=== PATIENT | female | born 1955 | race Caucasian/White ===

== ENCOUNTER 2020-06-15 09:51 | Outpatient (REF) | payer OTHER, SELFPAY ==
--- NOTE | 2020-06-15 | US_ITS ---
EXAMINATION: US THYROID CLINICAL INFORMATION: Thyroid nodule. COMPARISON: Ultrasound soft tissue head/neck thyroid dated 08/11/2019 and 08/30/2018. TECHNIQUE: Linear transducer osuna-scale and color Doppler examination with attention to the region of the thyroid. FINDINGS: SIZE: Measurements of the thyroid lobes and nodules are given in sagittal, anteroposterior and transverse dimensions respectively. Right Thyroid Lobe: 5.9 x 2.6 x 2.3 cm, volume 18.5 mL. Previously 5.7 x 2.6 x 2.3 cm, volume 17.8 mL. Parenchyma: The gland echotexture is heterogeneous. Thyroid vascularity is normal. Left Thyroid Lobe: 5.0 x 1.8 x 1.9 cm, volume 8.9 mL. Previously 5.0 x 2.3 x 1.7 cm, volume 10.2 mL. Parenchyma: The gland echotexture is heterogeneous. Thyroid vascularity is normal. Isthmus: 0.4 cm in maximum AP dimension. Previously 0.4 cm. RIGHT THYROID LOBE: There are 4 nodules seen. 1. Location: Superior. Size: 0.4 x 0.3 x 0.4 cm. Previous: 0.4 x 0.3 x 0.4 cm. Nodule characteristics: Colloid cyst. Hypoechoic with smooth margins. Microcalcification present with no intranodular flow.. 2. Location: Middle/lateral. Size: 0.4 x 0.4 x 0.4 cm. This nodule is not previously seen. Nodule characteristics: Heterogeneously hypoechoic with smooth margins. No internal calcification or intranodular flow.. 3. Location: Inferior/posterior. Size: 0.6 x 0.5 x 0.6 cm. Previous: 0.8 x 0.5 x 0.7 cm. Nodule characteristics: Heterogeneously hypoechoic with smooth margins. No internal calcification or intranodular flow.. 4. Location: Inferior. Size: 3.1 x 2.0 x 2.6 cm. Previous: 3.3 x 2.3 x 2.3 cm. Nodule characteristics: Heterogeneously isoechoic with smooth margins. No internal calcification. Intranodular flow is present. ISTHMUS: There is 1 nodule seen. 1. Location: Right middle. Size: 2.1 x 1.3 x 2.0 cm. Previous: 2.3 x 1.3 x 1.9 cm. Nodule characteristics: Complex cystic. Hypoechoic with smooth margins. Microcalcifications present. Increased flow peripherally.. LEFT THYROID LOBE: There are 4 nodules seen. 1. Location: Superior. Size: 0.5 x 0.4 x 0.5 cm. Previous: 0.6 x 0.4 x 0.5 cm. Nodule characteristics: Heterogeneously hypoechoic with smooth margins. No internal calcification. Mild intranodular flow.. 2. Location: Superior. Size: 0.5 x 0.4 x 0.5 cm. Previous: 0.5 x 0.3 x 0.6 cm. Nodule characteristics: Heterogeneously hypoechoic with smooth margins. No internal calcification. Intranodular flow noted.. 3. Location: Middle. Size: 0.3 x 0.2 x 0.3 cm. Previous: 0.4 x 0.3 x 0.3 cm. Nodule characteristics: Colloid cyst. Hypoechoic with smooth margins. Microcalcification present with no intranodular flow.. 4. Location: Inferior. Size: 0.6 x 0.3 x 0.3 cm. Previous: 0.5 x 0.3 x 0.3 cm. Nodule characteristics: Complex cystic. Hypoechoic with irregular margins. Microcalcification present with intranodular flow noted.. NODES: No lymphadenopathy is seen in the tissue surrounding the thyroid gland. US/US thyroid IMPRESSION: Enlarged thyroid gland with multiple nodules noted. When compared to the previous study, this has a similar appearance..
== END 2020-06-15 09:52 | disposition home or self-care (01) ==
LOC: HO.HMGCX 09:51
PROVIDERS: PCP Internal Medicine; Visit Provider Internal Medicine
DX: E04.1 Nontoxic single thyroid nodule (principal)
CPT/HCPCS: 76536

== ENCOUNTER 2021-05-31 10:26 | Outpatient (REF) | payer OTHER, SELFPAY ==
--- NOTE | ~2021-05-31 | US_ITS ---
EXAMINATION: US THYROID CLINICAL INFORMATION: Thyroid nodules. COMPARISON: Ultrasound thyroid 06/15/2020. TECHNIQUE: Linear transducer osuna-scale and color Doppler examination with attention to the region of the thyroid. FINDINGS: SIZE: Measurements of the thyroid lobes and nodules are given in sagittal, anteroposterior and transverse dimensions respectively. Right Thyroid Lobe: 6.5 x 2.7 x 2.2 cm, volume 19.6 mL. Previously 5.9 x 2.6 x 2.3 cm, volume 18.5 mL. Parenchyma: The gland echotexture is homogeneous. Thyroid vascularity is normal. Left Thyroid Lobe: 4.4 x 1.9 x 1.2 cm, volume 5.3 mL. Previously 5.0 x 1.8 x 1.9 cm, volume 8.9 mL. Parenchyma: The gland echotexture is homogeneous. Thyroid vascularity is normal. Isthmus: 0.38 cm in maximum AP dimension. Previously 0.40 cm. Estimated total number of nodules greater than or equal to 1 cm: 1. Technical Rep nodules are described as follows: 1. Location: Right isthmus. Size: 0.85 x 0.60 x 0.60 cm, volume 0.16 mL. Previously: 2.1 x 1.3 x 2.0 cm, volume 2.9 mL. Nodule characteristics: Composition: Mixed cystic and solid (1). Echogenicity: Hypoechoic (2). Shape: Not taller than wide (0). Margins: Smooth (0). Echogenic Foci: Punctate echogenic foci (3). ACR TI-RADS total points: 6 Previous: Not applicable. ACR TI-RADS category: 4 Previous: Not applicable. Significant change in size (>/= 20% in 2 dimensions and minimal increase of 2 mm or 50% or greater increase in volume): No, decreased Change in features: No Change in ACR TI-RADS risk category: No 2. Location: Right mid. Size: 0.35 x 0.45 x 0.60 cm, volume 0.05 mL. Previously: 0.42 x 0.40 x 0.44 cm, volume 0.04 mL. Nodule characteristics: Composition: Mixed cystic and solid (1). Echogenicity: Hypoechoic (2). Shape: Not taller than wide (0). Margins: Smooth (0). Echogenic Foci: Punctate echogenic foci (3). ACR TI-RADS total points: 6 Previous: Not applicable. ACR TI-RADS category: 4 Previous: Not applicable. Significant change in size (>/= 20% in 2 dimensions and minimal increase of 2 mm or 50% or greater increase in volume): No Change in features: No Change in ACR TI-RADS risk category: No 3. Location: Right mid/lower. Size: 3.2 x 2.2 x 2.2 cm, volume 8.3 mL. Previously: 3.1 x 2.0 x 2.5 cm, volume 8.1 mL. Nodule characteristics: Composition: Solid/almost completely solid (2). Echogenicity: Cannot be determined (1). Shape: Not taller than wide (0). Margins: Smooth (0). Echogenic Foci: Punctate echogenic foci (3). ACR TI-RADS total points: 6 Previous: Not applicable. ACR TI-RADS category: 4 Previous: Not applicable. Significant change in size (>/= 20% in 2 dimensions and minimal increase of 2 mm or 50% or greater increase in volume): No Change in features: No Change in ACR TI-RADS risk category: No 4. Location: Right lower. Size: 0.82 x 0.50 x 0.81 cm, volume 0.17 mL. Previously: Not seen previously. Nodule characteristics: Composition: Mixed cystic and solid (1). Echogenicity: Very hypoechoic (3). Shape: Not taller than wide (0). Margins: Smooth (0). Echogenic Foci: None (0). ACR TI-RADS total points: 4 Previous: Not applicable. ACR TI-RADS category: 4 Previous: Not applicable. 5. Location: Left mid. Size: 0.60 x 0.40 x 0.50 cm, volume 0.06 mL. Previously: 0.54 x 0.37 x 0.46 cm, volume 0.05 mL. Nodule characteristics: Composition: Mixed cystic and solid (1). Echogenicity: Hypoechoic (2). Shape: Not taller than wide (0). Margins: Smooth (0). Echogenic Foci: Punctate echogenic foci (3). ACR TI-RADS total points: 6 Previous: Not applicable. ACR TI-RADS category: 4 Previous: Not applicable. Significant change in size (>/= 20% in 2 dimensions and minimal increase of 2 mm or 50% or greater increase in volume): No Change in features: No Change in ACR TI-RADS risk category: No NODES: No lymphadenopathy is seen in the tissue surrounding the thyroid gland. US/US thyroid IMPRESSION: Multinodular thyroid gland, with most nodules not significantly changed from prior. Nodule at the isthmus appears decreased in prominence from prior. Other than nodule #3, these nodules do not require follow-up. The largest nodule would be appropriate for fine-needle aspiration, though this may have been remotely biopsied. No significant change from prior imaging. ACR TI-RADS RECOMMENDATION REFERENCE: Ultrasound-guided fine-needle aspiration, followup ultrasound, no further follow up. * TR1 (0 point) and TR 2 (2 points): No FNA or follow up * TR3 (3 points): FNA if more than or equal to 2.5 cm in maximum dimension, followup ultrasound in 1, 3 and 5 years if 1.5 to 2.4 cm in maximum dimension. * TR4 (4-6 points): FNA if more than or equal to 1.5 cm in maximum dimension, followup ultrasound in 1, 2, 3 and 5 years if 1 to 1.4 cm in maximum dimension. * TR5 (more than or equal to 7 points): FNA if more than or equal to 1 cm in maximum dimension, followup ultrasound every year for 5 years if 0.5 to 0.9 cm in maximum dimension. * TR3, TR4 or TR5 nodules that are below the size threshold for follow up receive no follow up.
== END 2021-05-31 10:27 | disposition home or self-care (01) ==
LOC: HO.HMGCX 10:26
PROVIDERS: PCP Internal Medicine; Visit Provider Internal Medicine
DX: E04.1 Nontoxic single thyroid nodule (principal)
CPT/HCPCS: 76536

== ENCOUNTER 2021-06-04 10:23 | Outpatient (REF) | payer OTHER, SELFPAY ==
[2021-06-04 10:27] LABS: MANUAL DIFF FLAG NO
[2021-06-04 11:00] LABS: Basophils Percent Auto 0.8 % (0-2); Eosinophils Absolute Auto 0.1 X10*3/uL (0.0-0.4); Eosinophils Percent Auto 1.7 % (0-4); Hematocrit 44.1 % (37.0-47.0); Hemoglobin 14.4 g/dl (12.0-16.0); Imm Gran Abs Auto 0.01 X10*3/uL (0.00-0.03); Imm Gran Pct Auto 0.2 % (0.0-0.4); Lymphocytes Absolute Auto 1.6 X10*3/uL (1.2-4.9); Lymphocytes Percent Auto 30.7 % (20-40); Mean Corpuscular HGB Conc 32.7 g/dl (31.0-35.0); Mean Corpuscular Hemoglobin 29.9 pg (27.0-33.0); Mean Corpuscular Volume 91.7 fL (80.0-98.0); Mean Platelet Volume 9.6 fL (9.4-12.3); Monocytes Absolute Auto 0.5 X10*3/uL (0.1-1.2); Monocytes Percent Auto 9.7 % (2-11); Neutrophils Absolute Auto 2.99 x10*3/uL (2.0-8.3); Neutrophils Percent Auto 56.9 % (45-73); Platelet Count 258 X10*3/uL (160-400); Red Blood Count 4.81 X10*6/uL (4.20-5.50); Red Cell Distribution Width 11.9 % (11.0-16.0); White Blood Count 5.3 X10*3/uL (4.8-10.8)
[2021-06-04 11:23] LABS: Appearance Urine CLOUDY; Color Urine YELLOW; Glucose Urine UA NEG (NEG); Leukocyte Esterase Urine 3+ (NEG); Nitrite Urine NEG (NEG); Urine Blood 1+ (NEG); Urine Ketones NEG (NEG); Urine Protein NEG (NEG-TRACE)
[2021-06-04 11:45] LABS: Alanine Aminotransferase 25 U/L (0-31); Alkaline Phosphatase 96 U/L (39-117); Anion Gap 10 (12-20); Aspartate Amino Transferase 31 U/L (5-31); Bilirubin Total 0.4 mg/dL (0.0-1.0); Blood Urea Nitrogen 16 mg/dL (9-16); Calcium 9.2 mg/dL (8.4-10.2); Carbon Dioxide 29 mmol/L (22-29); Chloride 107 mmol/L (96-108); Cholesterol 182 mg/dL; Estimated Glomerular Filt Rate > 60; Glucose Fasting 107 mg/dL (60-99); HDL Cholesterol 55 mg/dL; LDL Cholesterol Calculated 116 mg/dl; Sodium 142 mmol/L (135-145); Total Protein 6.3 g/dL (6.5-8.0); Triglycerides 55 mg/dL
[2021-06-04 11:54] LABS: Bacteria Urine 2+ /LPF; Squamous Epithelial Cell Urine 2+ /LPF
[2021-06-04 11:55] LABS: Mucus Urine 2+ /LPF
[2021-06-04 12:06] LABS: TSH reflex Free T4 1.13 uIU/mL (0.32-4.0); Vitamin D 25-OH Total 41.8 ng/mL (>30)
[2021-06-04 12:17] LABS: Vitamin B12 392 pg/mL (200-900)
== END 2021-06-04 10:24 | disposition home or self-care (01) ==
LOC: HO.LNP 10:23
PROVIDERS: Visit Provider Internal Medicine
DX: Z00.00 Encounter for general adult medical examination without abnormal findings (principal); E55.9 Vitamin D deficiency, unspecified; R81 Glycosuria; I10 Essential (primary) hypertension; E04.1 Nontoxic single thyroid nodule
CPT/HCPCS: 80053; 80061; 81001; 81003; 82306; 82607; 84443; 85025

== ENCOUNTER 2021-06-10 12:26 | Outpatient (REF) | payer OTHER, SELFPAY | END 2021-06-10 12:27 | disposition home or self-care (01) | LOC: HO.LNP 12:26 | PROVIDERS: Visit Provider Internal Medicine | DX: R30.0 Dysuria (principal) | CPT/HCPCS: 87086 ==

== ENCOUNTER 2022-06-10 11:01 | Outpatient (REF) | payer OTHER, SELFPAY ==
[2022-06-10 11:04] LABS: MANUAL DIFF FLAG NO
[2022-06-10 12:03] LABS: Basophils Percent Auto 0.7 % (0-2); Eosinophils Absolute Auto 0.1 X10*3/uL (0.0-0.4); Eosinophils Percent Auto 1.1 % (0-4); Hematocrit 45.6 % (37.0-47.0); Hemoglobin 14.8 g/dl (12.0-16.0); Imm Gran Abs Auto 0.01 X10*3/uL (0.00-0.03); Imm Gran Pct Auto 0.2 % (0.0-0.4); Lymphocytes Absolute Auto 1.6 X10*3/uL (1.2-4.9); Lymphocytes Percent Auto 28.4 % (20-40); Mean Corpuscular HGB Conc 32.5 g/dl (31.0-35.0); Mean Corpuscular Hemoglobin 30.4 pg (27.0-33.0); Mean Corpuscular Volume 93.6 fL (80.0-98.0); Mean Platelet Volume 9.6 fL (9.4-12.3); Monocytes Absolute Auto 0.5 X10*3/uL (0.1-1.2); Monocytes Percent Auto 7.9 % (2-11); Neutrophils Absolute Auto 3.5 x10*3/uL (2.0-8.3); Neutrophils Percent Auto 61.7 % (45-73); Platelet Count 263 X10*3/uL (160-400); Red Blood Count 4.87 X10*6/uL (4.20-5.50); White Blood Count 5.7 X10*3/uL (4.8-10.8)
[2022-06-10 12:12] LABS: Appearance Urine Clear; Color Urine Yellow; Glucose Urine UA Negative (Negative); Leukocyte Esterase Urine Trace (Negative); Nitrite Urine Negative (Negative); UMIC TRIGGER UA YES; Urine Blood Negative (Negative); Urine Ketones Negative (Negative); Urine Protein Negative (Neg-Trace)
[2022-06-10 12:22] LABS: Bacteria Urine None Seen (None Seen); Hyaline Casts Urine 0-2 /LPF (0-2); RBC Urine 0-2 /HPF (0-2); Squamous Epithelial Cell Urine 0-2 /HPF (0-2); WBC Urine 0-5 /HPF (0-5)
[2022-06-10 12:35] LABS: TSH reflex Free T4 0.72 uIU/mL (0.32-4.0)
[2022-06-10 12:49] LABS: Alanine Aminotransferase 22 U/L (0-31); Albumin Level 4.3 g/dL (3.5-5.0); Alkaline Phosphatase 93 U/L (39-117); Anion Gap 14 (12-20); Aspartate Amino Transferase 28 U/L (5-31); Bilirubin Total 0.7 mg/dL (0.0-1.0); Blood Urea Nitrogen 21 mg/dL (9-16); Calcium 9.6 mg/dL (8.4-10.2); Carbon Dioxide 25 mmol/L (22-29); Chloride 109 mmol/L (96-108); Cholesterol 194 mg/dL; Estimated Glomerular Filt Rate > 60; Glucose Fasting 109 mg/dL (60-99); HDL Cholesterol 55 mg/dL; LDL Cholesterol Calculated 127 mg/dl; Potassium 4.1 mmol/L (3.3-5.1); Sodium 144 mmol/L (135-145); Total Protein 6.7 g/dL (6.5-8.0); Triglycerides 63 mg/dL
== END 2022-06-10 11:02 | disposition home or self-care (01) ==
LOC: HO.LNP 11:01
PROVIDERS: Visit Provider Internal Medicine
DX: Z00.00 Encounter for general adult medical examination without abnormal findings (principal); E55.9 Vitamin D deficiency, unspecified; E04.1 Nontoxic single thyroid nodule; I10 Essential (primary) hypertension
CPT/HCPCS: 80053; 80061; 81001; 82306; 84443; 85025

== ENCOUNTER 2022-06-11 13:52 | Outpatient (REF) | payer OTHER, SELFPAY ==
--- NOTE | ~2022-06-11 | US_ITS ---
EXAMINATION: US THYROID CLINICAL INFORMATION: Multinodular goiter. COMPARISON: Ultrasound thyroid 05/31/2021 and 06/15/2020. TECHNIQUE: Linear transducer grayscale and color Doppler examination with attention to the region of the thyroid. FINDINGS: SIZE: Measurements of the thyroid lobes and nodules are given in sagittal, anteroposterior and transverse dimensions respectively. Right Thyroid Lobe: 6.6 x 2.3 x 2.3 cm, volume 18.4 mL. Previously 6.5 x 2.7 x 2.2 cm, volume 19.6 mL. Parenchyma: The gland echotexture is heterogeneous. Thyroid vascularity is increased. Left Thyroid Lobe: 4.9 x 1.9 x 1.4 cm, volume 6.8 mL. Previously 4.4 x 1.9 x 1.2 cm, volume 5.3 mL. Parenchyma: The gland echotexture is heterogeneous. Thyroid vascularity is increased. Isthmus: 0.75 cm in maximum AP dimension. Previously 0.38 cm. Estimated total number of nodules greater than or equal to 1 cm: 1. Orthotic/Prosthetic Practitioner nodules are described as follows: 1. Location: Right mid. Size: 0.40 x 0.40 x 0.40 cm, volume 0.03 mL. Previously: 0.30 x 0.40 x 0.60 cm, volume 0.05 mL. Nodule characteristics: Composition: Spongiform (0). Echogenicity: Anechoic (0). Shape: Not taller than wide (0). Margins: Smooth (0). Echogenic Foci: None (0). ACR TI-RADS total points: 0. Previous: 6. ACR TI-RADS category: 1. Previous: 4. Significant change in size (>/= 20% in 2 dimensions and minimal increase of 2 mm or 50% or greater increase in volume): None. Change in features: None. Change in ACR TI-RADS risk category: Not applicable. 2. Location: Right mid/inferior. Size: 3.3 x 2.4 x 2.5 cm, volume 10.0 mL. Previously: 3.2 x 2.2 x 2.2 cm, volume 8.3 mL. Nodule characteristics: Composition: Solid/almost completely solid (2). Echogenicity: Cannot be determined (1). Shape: Not taller than wide (0). Margins: Smooth (0). Echogenic Foci: Punctate echogenic foci (3). ACR TI-RADS total points: 6. Previous: 6. ACR TI-RADS category: 4. Previous: 4. Significant change in size (>/= 20% in 2 dimensions and minimal increase of 2 mm or 50% or greater increase in volume): None. Change in features: None. Change in ACR TI-RADS risk category: No change. 3. Location: Right inferior. Size: 0.90 x 0.53 x 0.74 cm, volume 0.18 mL. Previously: 0.82 x 0.50 x 0.81 cm, volume 0.17 mL. Nodule characteristics: Composition: Spongiform (0). Echogenicity: Anechoic (0). Shape: Not taller than wide (0). Margins: Smooth (0). Echogenic Foci: None (0). ACR TI-RADS total points: 0. Previous: 4. ACR TI-RADS category: 1. Previous: 4. Significant change in size (>/= 20% in 2 dimensions and minimal increase of 2 mm or 50% or greater increase in volume): None. Change in features: None. Change in ACR TI-RADS risk category: Significantly improved. 4. Location: Left superior. Size: 0.70 x 0.50 x 0.60 cm, volume 0.11 mL. Previously: 0.60 x 0.40 x 0.50 cm, volume 0.06 mL. Nodule characteristics: Composition: Spongiform (0). Echogenicity: Anechoic (0). Shape: Not taller than wide (0). Margins: Smooth (0). Echogenic Foci: None (0). ACR TI-RADS total points: 0. Previous: 6. ACR TI-RADS category: 1. Previous: 4. Significant change in size (>/= 20% in 2 dimensions and minimal increase of 2 mm or 50% or greater increase in volume): None. Change in features: None. Change in ACR TI-RADS risk category: Significantly improved. 5. Location: Left mid. Size: 0.40 x 0.30 x 0.30 cm, volume 0.02 mL. Previously: 0.50 x 0.30 x 0.40 cm, volume 0.03 mL. Nodule characteristics: Composition: Spongiform (0). Echogenicity: Anechoic (0). Shape: Not taller than wide (0). Margins: Smooth (0). Echogenic Foci: None (0). ACR TI-RADS total points: 0. Previous: None. ACR TI-RADS category: 1. Previous: None. Significant change in size (>/= 20% in 2 dimensions and minimal increase of 2 mm or 50% or greater increase in volume): None. Change in features: None. Change in ACR TI-RADS risk category: Not applicable. NODES: No lymphadenopathy is seen in the tissue surrounding the thyroid gland. US/US thyroid IMPRESSION: 1. Multinodular goiter with no significant change in the nodules or cysts. The largest nodule is in the krd-[id number]-[id number] pole right lobe. 2. TR1 (0 point) and TR 2 (2 points): 3. TR4 (4-6 points): FNA if more than or equal to 1.5 cm in maximum dimension, followup ultrasound in 1, 2, 3 and 5 years if 1 to 1.4 cm in maximum dimension. 4. TR5 (more than or equal to 7 points): FNA if more than or equal to 1 cm in maximum dimension, followup ultrasound every year for 5 years if 0.5 to 0.9 cm in maximum dimension. ACR TI-RADS RECOMMENDATION REFERENCE: Ultrasound-guided fine-needle aspiration, followup ultrasound, no further follow up. * TR1 (0 point) and TR 2 (2 points): No FNA or follow up * TR3 (3 points): FNA if more than or equal to 2.5 cm in maximum dimension, followup ultrasound in 1, 3 and 5 years if 1.5 to 2.4 cm in maximum dimension. * TR4 (4-6 points): FNA if more than or equal to 1.5 cm in maximum dimension, followup ultrasound in 1, 2, 3 and 5 years if 1 to 1.4 cm in maximum dimension. * TR5 (more than or equal to 7 points): FNA if more than or equal to 1 cm in maximum dimension, followup ultrasound every year for 5 years if 0.5 to 0.9 cm in maximum dimension. * TR3, TR4 or TR5 nodules that are below the size threshold for follow up receive no follow up.
== END 2022-06-11 13:53 | disposition home or self-care (01) ==
LOC: HO.HMGCX 13:52
PROVIDERS: PCP Internal Medicine; Visit Provider Internal Medicine
DX: E04.1 Nontoxic single thyroid nodule (principal)
CPT/HCPCS: 76536

== ENCOUNTER 2022-09-16 08:19 | Outpatient (REF) | payer OTHER, SELFPAY ==
--- NOTE | ~2022-09-16 | US_ITS ---
EXAMINATION: ULTRASOUND-GUIDED FINE-NEEDLE ASPIRATION CLINICAL INFORMATION: Thyroid nodule. COMPARISON: Previous thyroid ultrasound most recent June 2022. TECHNIQUE: Procedure and risks and benefits including bleeding and infection were discussed with the patient and informed consent was obtained. The right neck was prepped and draped in the usual sterile fashion. The skin and soft tissues were anesthetized with 1% lidocaine plain. Using ultrasound guidance and a 25-gauge needle, access to the dominant nodule in the mid and lower pole of the right lobe was obtained. Three 25-gauge FNA specimens were obtained. Initial pathology reading was just blood. Two additional 25-gauge fine-needle aspirates were obtained. FINDINGS: There is a 3.2 x 2.2 x 1.8 cm nodule in the myz-oz-fptlm pole the right lobe that was targeted for fine-needle aspiration. US/US guided fine needle asp IMPRESSION: Ultrasound-guided right thyroid biopsy.
[2022-09-16] MEDS: Lidocaine HCl 1 % MPF 5 ML VIAL SUBCUT (09:46)
== END 2022-09-16 08:20 | disposition home or self-care (01) ==
LOC: HO.US 08:19
PROVIDERS: PCP Internal Medicine; Visit Provider Internal Medicine
DX: E04.1 Nontoxic single thyroid nodule (principal)
CPT/HCPCS: 10005; 88172; 88173; 88177; 88305

== ENCOUNTER 2023-06-09 07:18 | Outpatient (REF) | payer OTHER, SELFPAY ==
[2023-06-09 07:42] LABS: MANUAL DIFF FLAG NO
[2023-06-09 07:48] LABS: Basophils Absolute Auto 0.1 X10*3/uL (0.0-0.2); Basophils Percent Auto 0.7 % (0-2); Eosinophils Absolute Auto 0.1 X10*3/uL (0.0-0.4); Eosinophils Percent Auto 1.2 % (0-4); Hematocrit 45.3 % (37.0-47.0); Hemoglobin 14.7 g/dl (12.0-16.0); Imm Gran Abs Auto 0.01 X10*3/uL (0.00-0.03); Imm Gran Pct Auto 0.1 % (0.0-0.4); Lymphocytes Absolute Auto 1.4 X10*3/uL (1.2-4.9); Lymphocytes Percent Auto 20.6 % (20-40); Mean Corpuscular HGB Conc 32.5 g/dl (31.0-35.0); Mean Corpuscular Hemoglobin 29.9 pg (27.0-33.0); Mean Corpuscular Volume 92.1 fL (80.0-98.0); Mean Platelet Volume 9.1 fL (9.4-12.3); Monocytes Absolute Auto 0.5 X10*3/uL (0.1-1.2); Monocytes Percent Auto 6.8 % (2-11); Neutrophils Absolute Auto 4.9 x10*3/uL (2.0-8.3); Neutrophils Percent Auto 70.6 % (45-73); Platelet Count 252 X10*3/uL (160-400); Red Blood Count 4.92 X10*6/uL (4.20-5.50); Red Cell Distribution Width 11.9 % (11.0-16.0); White Blood Count 6.9 X10*3/uL (4.8-10.8)
[2023-06-09 08:04] LABS: Appearance Urine Clear; Color Urine Yellow; Glucose Urine UA Negative (Negative); Leukocyte Esterase Urine Negative (Negative); Nitrite Urine Negative (Negative); Specific Gravity - Urine 1.015 (1.005-1.025); Urine Blood Negative (Negative); Urine Ketones Trace mg/dL (Negative); Urine Protein Negative (Neg-Trace)
[2023-06-09 08:09] LABS: Bacteria Urine None Seen (None Seen); Hyaline Casts Urine 0-2 /LPF (0-2); RBC Urine 0-2 /HPF (0-2); Squamous Epithelial Cell Urine 0-2 /HPF (0-2); WBC Urine 0-5 /HPF (0-5)
[2023-06-09 08:18] LABS: Alanine Aminotransferase 21 U/L (0-31); Albumin Level 4.2 g/dL (3.5-5.0); Alkaline Phosphatase 91 U/L (39-117); Anion Gap 11 (12-20); Aspartate Amino Transferase 25 U/L (5-31); Bilirubin Total 0.9 mg/dL (0.0-1.0); Blood Urea Nitrogen 17 mg/dL (9-16); Calcium 9.7 mg/dL (8.4-10.2); Carbon Dioxide 26 mmol/L (22-29); Chloride 112 mmol/L (96-108); Cholesterol 186 mg/dL (<200); Estimated Glomerular Filt Rate > 60; Glucose Fasting 101 mg/dL (60-99); HDL Cholesterol 62 mg/dL (>40); LDL Cholesterol Calculated 114 mg/dL (<100); Potassium 3.7 mmol/L (3.3-5.1); Sodium 145 mmol/L (135-145); Total Protein 6.8 g/dL (6.5-8.0); Triglycerides 54 mg/dL (<150)
[2023-06-09 08:33] LABS: TSH reflex Free T4 1.46 uIU/mL (0.32-4.0); Vitamin D 25-OH Total 47.3 ng/mL (>30)
== END 2023-06-09 07:19 | disposition home or self-care (01) ==
LOC: HO.LAB 07:18
PROVIDERS: PCP Internal Medicine; Visit Provider Internal Medicine
DX: Z00.00 Encounter for general adult medical examination without abnormal findings (principal); E55.9 Vitamin D deficiency, unspecified; E04.1 Nontoxic single thyroid nodule; I10 Essential (primary) hypertension
CPT/HCPCS: 36415; 80053; 80061; 81001; 82306; 84443; 85025

== ENCOUNTER 2024-01-08 14:27 | Outpatient (REF) | payer OTHER, SELFPAY ==
--- NOTE | ~2024-01-08 | XR_ITS ---
EXAMINATION: XR FOOT, RIGHT CLINICAL INFORMATION: Trauma COMPARISON: None available. TECHNIQUE: AP, lateral, and oblique views of the right foot. FINDINGS: There is a comminuted minimally displaced fracture of the proximal phalanx of the fifth toe. No other fracture seen. Mild degenerative change at the IP and MTP joints of the great toe with small osteophytes. Joint spaces otherwise normal. Soft tissue swelling of the fifth toe. XR/XR foot RT min 3V IMPRESSION: Comminuted minimally displaced fracture of the proximal phalanx of the fifth toe.
== END 2024-01-08 14:28 | disposition home or self-care (01) ==
LOC: HO.XRAY 14:27
PROVIDERS: PCP Internal Medicine; Visit Provider Internal Medicine
DX: S90.30XA Contusion of unspecified foot, initial encounter (principal)
CPT/HCPCS: 73630

== ENCOUNTER 2024-05-03 10:09 | Outpatient (REF) | payer OTHER, SELFPAY ==
--- NOTE | ~2024-05-03 | US_ITS ---
EXAMINATION: US THYROID CLINICAL INFORMATION: Thyroid nodules. COMPARISON: Ultrasound-guided thyroid biopsy 09/16/2022. Thyroid ultrasound 06/11/2022 and 05/31/2021. TECHNIQUE: Linear transducer grayscale and color Doppler examination with attention to the region of the thyroid. FINDINGS: SIZE: Measurements of the thyroid lobes and nodules are given in sagittal, anteroposterior and transverse dimensions respectively. Right Thyroid Lobe: 6.4 x 2.9 x 2.4 cm, volume 22.8 mL. Previously 6.6 x 2.3 x 2.3 cm, volume 18.4 mL. Parenchyma: The gland echotexture is heterogeneous. Thyroid vascularity is increased. Left Thyroid Lobe: 5.0 x 2.1 x 1.9 cm, volume 10.8 mL. Previously 4.9 x 1.9 x 1.4 cm, volume 6.8 mL. Parenchyma: The gland echotexture is heterogeneous. Thyroid vascularity is increased. Isthmus: 0.5 cm in maximum AP dimension. Previously 0.8 cm. Estimated total number of nodules greater than or equal to 1 cm: 1. Marketing Production Manager nodules are described as follows: 1. Location: Right mid pole. Size: 0.4 x 0.4 x 0.5 cm, volume 0.04 mL. Previously: 0.4 x 0.4 x 0.4 cm, volume 0.03 mL. Nodule characteristics: Composition: Spongiform (0). ACR TI-RADS total points: 0 Previous: 0 ACR TI-RADS category: 1 Previous: 1 Significant change in size (>/= 20% in 2 dimensions and minimal increase of 2 mm or 50% or greater increase in volume): No. Change in features: No. Change in ACR TI-RADS risk category: No. 2. Location: Right mid pole. Size: 2.9 x 2.3 x 2.8 cm, volume 9.5 mL. Previously: 3.3 x 2.4 x 2.5 cm, volume 10.0 mL. Nodule characteristics: Composition: Solid/almost completely solid (2). Echogenicity: Cannot be determined (1). Shape: Not taller than wide (0). Margins: Smooth (0). Echogenic Foci: Punctate echogenic foci (3). ACR TI-RADS total points: 6 Previous: 6 ACR TI-RADS category: 4 Previous: 4 Significant change in size (>/= 20% in 2 dimensions and minimal increase of 2 mm or 50% or greater increase in volume): No. Change in features: No. Change in ACR TI-RADS risk category: No. 3. Location: Right mid pole/lateral. Size: 0.9 x 0.5 x 0.8 cm, volume 0.20 mL. Previously: 0.9 x 0.5 x 0.7 cm, volume 0.20 mL. Nodule characteristics: Composition: Spongiform (0). ACR TI-RADS total points: 0 Previous: 0 ACR TI-RADS category: 1 Previous: 1 Significant change in size (>/= 20% in 2 dimensions and minimal increase of 2 mm or 50% or greater increase in volume): No. Change in features: No. Change in ACR TI-RADS risk category: No. 4. Location: Left upper pole. Size: 0.7 x 0.5 x 0.6 cm, volume 0.10 mL. Previously: 0.7 x 0.5 x 0.6 cm, volume 0.11 mL. Nodule characteristics: Composition: Spongiform (0). ACR TI-RADS total points: 0 Previous: 0 ACR TI-RADS category: 1 Previous: 1 Significant change in size (>/= 20% in 2 dimensions and minimal increase of 2 mm or 50% or greater increase in volume): No. Change in features: No. Change in ACR TI-RADS risk category: No. 5. Location: Left upper pole. Size: 0.4 x 0.2 x 0.4 cm, volume 0.01 mL. Previously: 0.4 x 0.3 x 0.3 cm, volume 0.02 mL. Nodule characteristics: Composition: Spongiform (0). ACR TI-RADS total points: 0 Previous: 0 ACR TI-RADS category: 1 Previous: 1 Significant change in size (>/= 20% in 2 dimensions and minimal increase of 2 mm or 50% or greater increase in volume): No. Change in features: No. Change in ACR TI-RADS risk category: No. NODES: No lymphadenopathy is seen in the tissue surrounding the thyroid gland. US/US thyroid IMPRESSION: 2.9 cm right mid TR 4 thyroid nodule meets criteria for biopsy and is stable in size. Correlation with biopsy results recommended to determine further management. Additional bilateral subcentimeter thyroid nodules, as detailed above. ACR TI-RADS RECOMMENDATION REFERENCE: Ultrasound-guided fine-needle aspiration, follow up ultrasound, no further followup. * TR1 (0 point) and TR2 (2 points): No FNA or followup * TR3 (3 points): FNA if more than or equal to 2.5 cm in maximum dimension, follow up ultrasound in 1, 3 and 5 years if 1.5 to 2.4 cm in maximum dimension. * TR4 (4-6 points): FNA if more than or equal to 1.5 cm in maximum dimension, follow up ultrasound in 1, 2, 3 and 5 years if 1 to 1.4 cm in maximum dimension. * TR5 (more than or equal to 7 points): FNA if more than or equal to 1 cm in maximum dimension, follow up ultrasound every year for 5 years if 0.5 to 0.9 cm in maximum dimension. * TR3, TR4 or TR5 nodules that are below the size threshold for follow up receive no followup. Electronically signed by: Karoline Centeno MD 05/31/2024 12:24 PM EDT
== END 2024-05-03 10:10 | disposition home or self-care (01) ==
LOC: HO.HMGCX 10:09
PROVIDERS: PCP Internal Medicine; Visit Provider Internal Medicine
DX: E04.1 Nontoxic single thyroid nodule (principal)
CPT/HCPCS: 76536

== ENCOUNTER 2024-06-20 10:39 | Outpatient (REF) | payer OTHER, SELFPAY ==
[2024-06-20 10:42] LABS: MANUAL DIFF FLAG NO
[2024-06-20 10:49] LABS: Appearance Urine Turbid; Color Urine Yellow; Glucose Urine UA Negative (Negative); Leukocyte Esterase Urine Large (3+) (Negative); Nitrite Urine Negative (Negative); PH 6.5 (5.0-9.0); Specific Gravity - Urine 1.015 (1.005-1.025); UMIC TRIGGER UACC YES; Urine Blood Small (1+) (Negative); Urine Ketones Negative (Negative); Urine Protein 30 (1+) mg/dL (Neg-Trace)
[2024-06-20 11:19] LABS: Bacteria Urine 3+ (None Seen); Granular Casts Urine Present; RBC Urine 0-2 /HPF (0-2); UACC Culture Trigger YES; WBC Urine >50 /HPF (0-5)
[2024-06-20 11:40] LABS: Alanine Aminotransferase 23 U/L (0-31); Albumin Level 3.9 g/dL (3.5-5.0); Alkaline Phosphatase 96 U/L (39-117); Anion Gap 8 (12-20); Aspartate Amino Transferase 32 U/L (5-31); Bilirubin Total 0.9 mg/dL (0.0-1.0); Blood Urea Nitrogen 17 mg/dL (9-16); Calcium 9.7 mg/dL (8.4-10.2); Carbon Dioxide 30 mmol/L (22-29); Chloride 110 mmol/L (96-108); Cholesterol 186 mg/dL (<200); Estimated Glomerular Filt Rate > 60; Glucose Fasting 96 mg/dL (60-99); HDL Cholesterol 62 mg/dL (>40); LDL Cholesterol Calculated 109 mg/dL (<100); Potassium 3.6 mmol/L (3.3-5.1); Sodium 144 mmol/L (135-145); Total Protein 6.4 g/dL (6.5-8.0); Triglycerides 77 mg/dL (<150)
[2024-06-20 11:55] LABS: Vitamin D 25-OH Total 57.1 ng/mL (>30)
[2024-06-20 14:44] LABS: Basophils Percent Auto 0.6 % (0-2); Eosinophils Absolute Auto 0.1 X10*3/uL (0.0-0.4); Eosinophils Percent Auto 1.7 % (0-4); Hematocrit 45.9 % (37.0-47.0); Hemoglobin 14.9 g/dl (12.0-16.0); Imm Gran Abs Auto 0.01 X10*3/uL (0.00-0.03); Imm Gran Pct Auto 0.2 % (0.0-0.4); Lymphocytes Absolute Auto 1.7 X10*3/uL (1.2-4.9); Lymphocytes Percent Auto 26.5 % (20-40); Mean Corpuscular HGB Conc 32.5 g/dl (31.0-35.0); Mean Corpuscular Hemoglobin 30.7 pg (27.0-33.0); Mean Corpuscular Volume 94.6 fL (80.0-98.0); Mean Platelet Volume 9.9 fL (9.4-12.3); Monocytes Absolute Auto 0.6 X10*3/uL (0.1-1.2); Monocytes Percent Auto 9.1 % (2-11); Neutrophils Percent Auto 61.9 % (45-73); Platelet Count 244 X10*3/uL (160-400); Red Blood Count 4.85 X10*6/uL (4.20-5.50); Red Cell Distribution Width 12.1 % (11.0-16.0); White Blood Count 6.5 X10*3/uL (4.8-10.8)
== END 2024-06-20 10:40 | disposition home or self-care (01) ==
LOC: HO.LNP 10:39
PROVIDERS: Visit Provider Internal Medicine
DX: Z00.00 Encounter for general adult medical examination without abnormal findings (principal); E55.9 Vitamin D deficiency, unspecified; I10 Essential (primary) hypertension
CPT/HCPCS: 80053; 80061; 81001; 82306; 85025; 87086; 87147

== ENCOUNTER 2024-07-14 12:39 | Outpatient (REF) | payer OTHER, SELFPAY ==
[2024-07-14 13:05] LABS: Appearance Urine Cloudy; Color Urine Yellow; Glucose Urine UA Negative (Negative); Leukocyte Esterase Urine Large (3+) (Negative); Nitrite Urine Negative (Negative); Specific Gravity - Urine 1.015 (1.005-1.025); UMIC TRIGGER UACC YES; Urine Blood Trace (Negative); Urine Ketones Negative (Negative); Urine Protein Negative (Neg-Trace)
[2024-07-14 13:07] LABS: Bacteria Urine 3+ (None Seen); RBC Urine 0-2 /HPF (0-2); UACC Culture Trigger YES; WBC Urine >50 /HPF (0-5)
== END 2024-07-14 12:40 | disposition home or self-care (01) ==
LOC: HO.LNP 12:39
PROVIDERS: Visit Provider Internal Medicine
DX: N39.0 Urinary tract infection, site not specified (principal); R31.9 Hematuria, unspecified; B95.1 Streptococcus, group B, as the cause of diseases classified elsewhere
CPT/HCPCS: 81001; 87086; 87147

== ENCOUNTER 2024-07-22 10:37 | Outpatient (AMB) | payer OTHER, SELFPAY ==
--- NOTE | 2024-07-22 10:38 | A.OFFVIS_ITS ---
Vital Signs 3 07/22/24 10:39 Height 5 ft 2 in Weight 130 lb 1.164 oz BMI 23.8 BP 156/82 H Blood Pressure Location Lt brachial Position Sitting Pulse 82 Pulse Source Pulse Oximeter Intake Visit Reasons: Thyroid nodule Intake Note: New patient present today for Thyroid nodule office visit. 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 Used to see Dr. Isbell in 2010 for thyroid nodules. Was periodically seen with surveillance US. She doesnt think she had biopsies before. 09/16/2022: Underwent biopsy of the right midpole 3.3 cm nodule with benign cytology ([place] category 2). 05/03/2024: Most recent thyroid ultrasound, showed stable size decreased size of the dominant right midpole nodule now measuring 2.9 cm in the maximum dimension, solid, isoechoic, with punctate echogenic foci. I reviewed the images myself, and I am not sure if I agree that the whole area marked as the nodule is actually the nodule, I think it might have been a mixture of 2 nodules, regardless I also reviewed the images of the biopsy procedure and the area of the punctate echogenic foci seems to have been biopsied appropriately with benign cytology. Given recent biopsy with benign cytology and stable size of the nodule we will plan to repeat an ultrasound in 1 year. Reports fatigue. Reports itching since November 2023. Patient denies any difficulty swallowing, pain on swallowing or voice changes or difficulty breathing. Patient denies any history of childhood neck radiation. Denies having ever used lithium, amiodarone or biotin supplements. Patient denies any family history of thyroid cancer or thyroid disease. 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 COMPARISON: Ultrasound-guided thyroid biopsy 09/16/2022. Thyroid ultrasound 06/11/2022 and 05/31/2021. TECHNIQUE: Linear transducer grayscale and color Doppler examination with attention to the region of the thyroid. FINDINGS: SIZE: Measurements of the thyroid lobes and nodules are given in sagittal, anteroposterior and transverse dimensions respectively. Right Thyroid Lobe: 6.4 x 2.9 x 2.4 cm, volume 22.8 mL. Previously 6.6 x 2.3 x 2.3 cm, volume 18.4 mL. Parenchyma: The gland echotexture is heterogeneous. Thyroid vascularity is increased. Left Thyroid Lobe: 5.0 x 2.1 x 1.9 cm, volume 10.8 mL. Previously 4.9 x 1.9 x 1.4 cm, volume 6.8 mL. Parenchyma: The gland echotexture is heterogeneous. Thyroid vascularity is increased. Isthmus: 0.5 cm in maximum AP dimension. Previously 0.8 cm. Estimated total number of nodules greater than or equal to 1 cm: 1. Nuclear Worker Technician nodules are described as follows: 1. Location: Right mid pole. Size: 0.4 x 0.4 x 0.5 cm, volume 0.04 mL. Previously: 0.4 x 0.4 x 0.4 cm, volume 0.03 mL. Nodule characteristics: Composition: Spongiform (0). ACR TI-RADS total points: 0 Previous: 0 ACR TI-RADS category: 1 Previous: 1 Significant change in size (>/= 20% in 2 dimensions and minimal increase of 2 mm or 50% or greater increase in volume): No. Change in features: No. Change in ACR TI-RADS risk category: No. 2. Location: Right mid pole. Size: 2.9 x 2.3 x 2.8 cm, volume 9.5 mL. Previously: 3.3 x 2.4 x 2.5 cm, volume 10.0 mL. Nodule characteristics: Composition: Solid/almost completely solid (2). Echogenicity: Cannot be determined (1). Shape: Not taller than wide (0). Margins: Smooth (0). Echogenic Foci: Punctate echogenic foci (3). ACR TI-RADS total points: 6 Previous: 6 ACR TI-RADS category: 4 Previous: 4 Significant change in size (>/= 20% in 2 dimensions and minimal increase of 2 mm or 50% or greater increase in volume): No. Change in features: No. Change in ACR TI-RADS risk category: No. 3. Location: Right mid pole/lateral. Size: 0.9 x 0.5 x 0.8 cm, volume 0.20 mL. Previously: 0.9 x 0.5 x 0.7 cm, volume 0.20 mL. Nodule characteristics: Composition: Spongiform (0). ACR TI-RADS total points: 0 Previous: 0 ACR TI-RADS category: 1 Previous: 1 Significant change in size (>/= 20% in 2 dimensions and minimal increase of 2 mm or 50% or greater increase in volume): No. Change in features: No. Change in ACR TI-RADS risk category: No. 4. Location: Left upper pole. Size: 0.7 x 0.5 x 0.6 cm, volume 0.10 mL. Previously: 0.7 x 0.5 x 0.6 cm, volume 0.11 mL. Nodule characteristics: Composition: Spongiform (0). ACR TI-RADS total points: 0 Previous: 0 ACR TI-RADS category: 1 Previous: 1 Significant change in size (>/= 20% in 2 dimensions and minimal increase of 2 mm or 50% or greater increase in volume): No. Change in features: No. Change in ACR TI-RADS risk category: No. 5. Location: Left upper pole. Size: 0.4 x 0.2 x 0.4 cm, volume 0.01 mL. Previously: 0.4 x 0.3 x 0.3 cm, volume 0.02 mL. Nodule characteristics: Composition: Spongiform (0). ACR TI-RADS total points: 0 Previous: 0 ACR TI-RADS category: 1 Previous: 1 Significant change in size (>/= 20% in 2 dimensions and minimal increase of 2 mm or 50% or greater increase in volume): No. Change in features: No. Change in ACR TI-RADS risk category: No. NODES: No lymphadenopathy is seen in the tissue surrounding the thyroid gland. US/US thyroid IMPRESSION: 2.9 cm right mid TR 4 thyroid nodule meets criteria for biopsy and is stable in size. Correlation with biopsy results recommended to determine further management. Additional bilateral subcentimeter thyroid nodules, as detailed above. US THYROID 06/11/22 CLINICAL INFORMATION: Multinodular goiter. COMPARISON: Ultrasound thyroid 05/31/2021 and 06/15/2020. TECHNIQUE: Linear transducer grayscale and color Doppler examination with attention to the region of the thyroid. FINDINGS: SIZE: Measurements of the thyroid lobes and nodules are given in sagittal, anteroposterior and transverse dimensions respectively. Right Thyroid Lobe: 6.6 x 2.3 x 2.3 cm, volume 18.4 mL. Previously 6.5 x 2.7 x 2.2 cm, volume 19.6 mL. Parenchyma: The gland echotexture is heterogeneous. Thyroid vascularity is increased. Left Thyroid Lobe: 4.9 x 1.9 x 1.4 cm, volume 6.8 mL. Previously 4.4 x 1.9 x 1.2 cm, volume 5.3 mL. Parenchyma: The gland echotexture is heterogeneous. Thyroid vascularity is increased. Isthmus: 0.75 cm in maximum AP dimension. Previously 0.38 cm. Estimated total number of nodules greater than or equal to 1 cm: 1. Nuclear Worker Technician nodules are described as follows: 1. Location: Right mid. Size: 0.40 x 0.40 x 0.40 cm, volume 0.03 mL. Previously: 0.30 x 0.40 x 0.60 cm, volume 0.05 mL. Nodule characteristics: Composition: Spongiform (0). Echogenicity: Anechoic (0). Shape: Not taller than wide (0). Margins: Smooth (0). Echogenic Foci: None (0). ACR TI-RADS total points: 0. Previous: 6. ACR TI-RADS category: 1. Previous: 4. Significant change in size (>/= 20% in 2 dimensions and minimal increase of 2 mm or 50% or greater increase in volume): None. Change in features: None. Change in ACR TI-RADS risk category: Not applicable. 2. Location: Right mid/inferior. Size: 3.3 x 2.4 x 2.5 cm, volume 10.0 mL. Previously: 3.2 x 2.2 x 2.2 cm, volume 8.3 mL. Nodule characteristics: Composition: Solid/almost completely solid (2). Echogenicity: Cannot be determined (1). Shape: Not taller than wide (0). Margins: Smooth (0). Echogenic Foci: Punctate echogenic foci (3). ACR TI-RADS total points: 6. Previous: 6. ACR TI-RADS category: 4. Previous: 4. Significant change in size (>/= 20% in 2 dimensions and minimal increase of 2 mm or 50% or greater increase in volume): None. Change in features: None. Change in ACR TI-RADS risk category: No change. 3. Location: Right inferior. Size: 0.90 x 0.53 x 0.74 cm, volume 0.18 mL. Previously: 0.82 x 0.50 x 0.81 cm, volume 0.17 mL. Nodule characteristics: Composition: Spongiform (0). Echogenicity: Anechoic (0). Shape: Not taller than wide (0). Margins: Smooth (0). Echogenic Foci: None (0). ACR TI-RADS total points: 0. Previous: 4. ACR TI-RADS category: 1. Previous: 4. Significant change in size (>/= 20% in 2 dimensions and minimal increase of 2 mm or 50% or greater increase in volume): None. Change in features: None. Change in ACR TI-RADS risk category: Significantly improved. 4. Location: Left superior. Size: 0.70 x 0.50 x 0.60 cm, volume 0.11 mL. Previously: 0.60 x 0.40 x 0.50 cm, volume 0.06 mL. Nodule characteristics: Composition: Spongiform (0). Echogenicity: Anechoic (0). Shape: Not taller than wide (0). Margins: Smooth (0). Echogenic Foci: None (0). ACR TI-RADS total points: 0. Previous: 6. ACR TI-RADS category: 1. Previous: 4. Significant change in size (>/= 20% in 2 dimensions and minimal increase of 2 mm or 50% or greater increase in volume): None. Change in features: None. Change in ACR TI-RADS risk category: Significantly improved. 5. Location: Left mid. Size: 0.40 x 0.30 x 0.30 cm, volume 0.02 mL. Previously: 0.50 x 0.30 x 0.40 cm, volume 0.03 mL. Nodule characteristics: Composition: Spongiform (0). Echogenicity: Anechoic (0). Shape: Not taller than wide (0). Margins: Smooth (0). Echogenic Foci: None (0). ACR TI-RADS total points: 0. Previous: None. ACR TI-RADS category: 1. Previous: None. Significant change in size (>/= 20% in 2 dimensions and minimal increase of 2 mm or 50% or greater increase in volume): None. Change in features: None. Change in ACR TI-RADS risk category: Not applicable. NODES: No lymphadenopathy is seen in the tissue surrounding the thyroid gland. US/US thyroid IMPRESSION: 1. Multinodular goiter with no significant change in the nodules or cysts. The largest nodule is in the [id number] pole right lobe. 2. TR1 (0 point) and TR 2 (2 points): 3. TR4 (4-6 points): FNA if more than or equal to 1.5 cm in maximum dimension, followup ultrasound in 1, 2, 3 and 5 years if 1 to 1.4 cm in maximum dimension. 4. TR5 (more than or equal to 7 points): FNA if more than or equal to 1 cm in maximum dimension, followup ultrasound every year for 5 years if 0.5 to 0.9 cm in maximum dimension. US THYROID 05/31/21 CLINICAL INFORMATION: Thyroid nodules. COMPARISON: Ultrasound thyroid 06/15/2020. TECHNIQUE: Linear transducer osuna-scale and color Doppler examination with attention to the region of the thyroid. FINDINGS: SIZE: Measurements of the thyroid lobes and nodules are given in sagittal, anteroposterior and transverse dimensions respectively. Right Thyroid Lobe: 6.5 x 2.7 x 2.2 cm, volume 19.6 mL. Previously 5.9 x 2.6 x 2.3 cm, volume 18.5 mL. Parenchyma: The gland echotexture is homogeneous. Thyroid vascularity is normal. Left Thyroid Lobe: 4.4 x 1.9 x 1.2 cm, volume 5.3 mL. Previously 5.0 x 1.8 x 1.9 cm, volume 8.9 mL. Parenchyma: The gland echotexture is homogeneous. Thyroid vascularity is normal. Isthmus: 0.38 cm in maximum AP dimension. Previously 0.40 cm. Estimated total number of nodules greater than or equal to 1 cm: 1. Nuclear Worker Technician nodules are described as follows: 1. Location: Right isthmus. Size: 0.85 x 0.60 x 0.60 cm, volume 0.16 mL. Previously: 2.1 x 1.3 x 2.0 cm, volume 2.9 mL. Nodule characteristics: Composition: Mixed cystic and solid (1). Echogenicity: Hypoechoic (2). Shape: Not taller than wide (0). Margins: Smooth (0). Echogenic Foci: Punctate echogenic foci (3). ACR TI-RADS total points: 6 Previous: Not applicable. ACR TI-RADS category: 4 Previous: Not applicable. Significant change in size (>/= 20% in 2 dimensions and minimal increase of 2 mm or 50% or greater increase in volume): No, decreased Change in features: No Change in ACR TI-RADS risk category: No 2. Location: Right mid. Size: 0.35 x 0.45 x 0.60 cm, volume 0.05 mL. Previously: 0.42 x 0.40 x 0.44 cm, volume 0.04 mL. Nodule characteristics: Composition: Mixed cystic and solid (1). Echogenicity: Hypoechoic (2). Shape: Not taller than wide (0). Margins: Smooth (0). Echogenic Foci: Punctate echogenic foci (3). ACR TI-RADS total points: 6 Previous: Not applicable. ACR TI-RADS category: 4 Previous: Not applicable. Significant change in size (>/= 20% in 2 dimensions and minimal increase of 2 mm or 50% or greater increase in volume): No Change in features: No Change in ACR TI-RADS risk category: No 3. Location: Right mid/lower. Size: 3.2 x 2.2 x 2.2 cm, volume 8.3 mL. Previously: 3.1 x 2.0 x 2.5 cm, volume 8.1 mL. Nodule characteristics: Composition: Solid/almost completely solid (2). Echogenicity: Cannot be determined (1). Shape: Not taller than wide (0). Margins: Smooth (0). Echogenic Foci: Punctate echogenic foci (3). ACR TI-RADS total points: 6 Previous: Not applicable. ACR TI-RADS category: 4 Previous: Not applicable. Significant change in size (>/= 20% in 2 dimensions and minimal increase of 2 mm or 50% or greater increase in volume): No Change in features: No Change in ACR TI-RADS risk category: No 4. Location: Right lower. Size: 0.82 x 0.50 x 0.81 cm, volume 0.17 mL. Previously: Not seen previously. Nodule characteristics: Composition: Mixed cystic and solid (1). Echogenicity: Very hypoechoic (3). Shape: Not taller than wide (0). Margins: Smooth (0). Echogenic Foci: None (0). ACR TI-RADS total points: 4 Previous: Not applicable. ACR TI-RADS category: 4 Previous: Not applicable. 5. Location: Left mid. Size: 0.60 x 0.40 x 0.50 cm, volume 0.06 mL. Previously: 0.54 x 0.37 x 0.46 cm, volume 0.05 mL. Nodule characteristics: Composition: Mixed cystic and solid (1). Echogenicity: Hypoechoic (2). Shape: Not taller than wide (0). Margins: Smooth (0). Echogenic Foci: Punctate echogenic foci (3). ACR TI-RADS total points: 6 Previous: Not applicable. ACR TI-RADS category: 4 Previous: Not applicable. Significant change in size (>/= 20% in 2 dimensions and minimal increase of 2 mm or 50% or greater increase in volume): No Change in features: No Change in ACR TI-RADS risk category: No NODES: No lymphadenopathy is seen in the tissue surrounding the thyroid gland. US/US thyroid IMPRESSION: Multinodular thyroid gland, with most nodules not significantly changed from prior. Nodule at the isthmus appears decreased in prominence from prior. Other than nodule #3, these nodules do not require follow-up. The largest nodule would be appropriate for fine-needle aspiration, though this may have been remotely biopsied. No significant change from prior imaging. US THYROID 06/15/20 CLINICAL INFORMATION: Thyroid nodule. COMPARISON: Ultrasound soft tissue head/neck thyroid dated 08/11/2019 and 08/30/2018. TECHNIQUE: Linear transducer [place]una-scale and color Doppler examination with attention to the region of the thyroid. FINDINGS: SIZE: Measurements of the thyroid lobes and nodules are given in sagittal, anteroposterior and transverse dimensions respectively. Right Thyroid Lobe: 5.9 x 2.6 x 2.3 cm, volume 18.5 mL. Previously 5.7 x 2.6 x 2.3 cm, volume 17.8 mL. Parenchyma: The gland echotexture is heterogeneous. Thyroid vascularity is normal. Left Thyroid Lobe: 5.0 x 1.8 x 1.9 cm, volume 8.9 mL. Previously 5.0 x 2.3 x 1.7 cm, volume 10.2 mL. Parenchyma: The gland echotexture is heterogeneous. Thyroid vascularity is normal. Isthmus: 0.4 cm in maximum AP dimension. Previously 0.4 cm. RIGHT THYROID LOBE: There are 4 nodules seen. 1. Location: Superior. Size: 0.4 x 0.3 x 0.4 cm. Previous: 0.4 x 0.3 x 0.4 cm. Nodule characteristics: Colloid cyst. Hypoechoic with smooth margins. Microcalcification present with no intranodular flow.. 2. Location: Middle/lateral. Size: 0.4 x 0.4 x 0.4 cm. This nodule is not previously seen. Nodule characteristics: Heterogeneously hypoechoic with smooth margins. No internal calcification or intranodular flow.. 3. Location: Inferior/posterior. Size: 0.6 x 0.5 x 0.6 cm. Previous: 0.8 x 0.5 x 0.7 cm. Nodule characteristics: Heterogeneously hypoechoic with smooth margins. No internal calcification or intranodular flow.. 4. Location: Inferior. Size: 3.1 x 2.0 x 2.6 cm. Previous: 3.3 x 2.3 x 2.3 cm. Nodule characteristics: Heterogeneously isoechoic with smooth margins. No internal calcification. Intranodular flow is present. ISTHMUS: There is 1 nodule seen. 1. Location: Right middle. Size: 2.1 x 1.3 x 2.0 cm. Previous: 2.3 x 1.3 x 1.9 cm. Nodule characteristics: Complex cystic. Hypoechoic with smooth margins. Microcalcifications present. Increased flow peripherally.. LEFT THYROID LOBE: There are 4 nodules seen. 1. Location: Superior. Size: 0.5 x 0.4 x 0.5 cm. Previous: 0.6 x 0.4 x 0.5 cm. Nodule characteristics: Heterogeneously hypoechoic with smooth margins. No internal calcification. Mild intranodular flow.. 2. Location: Superior. Size: 0.5 x 0.4 x 0.5 cm. Previous: 0.5 x 0.3 x 0.6 cm. Nodule characteristics: Heterogeneously hypoechoic with smooth margins. No internal calcification. Intranodular flow noted.. 3. Location: Middle. Size: 0.3 x 0.2 x 0.3 cm. Previous: 0.4 x 0.3 x 0.3 cm. Nodule characteristics: Colloid cyst. Hypoechoic with smooth margins. Microcalcification present with no intranodular flow.. 4. Location: Inferior. Size: 0.6 x 0.3 x 0.3 cm. Previous: 0.5 x 0.3 x 0.3 cm. Nodule characteristics: Complex cystic. Hypoechoic with irregular margins. Microcalcification present with intranodular flow noted.. NODES: No lymphadenopathy is seen in the tissue surrounding the thyroid gland. US/US thyroid IMPRESSION: Enlarged thyroid gland with multiple nodules noted. When compared to the previous study, this has a similar appearance.. [facility] Medical History (Updated 07/22/24 @ 11:11 by Tasha Vance MD) Multinodular goiter Family History (Updated 07/22/24 @ 10:45 by BENEDICT Tatum) Mother Cancer Father Rheumatoid arthritis Social History Alcohol intake: former Patient Tobacco Use Status: Never used Tobacco Physical Exam Vital Signs: Last Vital Signs Pulse 82 07/22/24 10:39 BP 156/82 H 07/22/24 10:39 BMI result Body Mass Index 23.8 Assessment & Plan Assessment & Plan (1) Multinodular goiter: Code(s): E04.2 - Nontoxic multinodular goiter Category: Medical Plan: 69-year-old female with no family history of thyroid cancer, with no personal history of head or neck radiation, with a history of multinodular goiter dating back at least to 2010. She has a dominant right 2.9 cm midpole nodule which has remained stable/slightly decreased in size when I reviewed her ultrasound images dating back to 2019. She had biopsy of this nodule in September 2022 with benign cytology [place] category 2. Most recent thyroid ultrasound done in May 2024 showed stable size of the nodule, we will plan for her to repeat an ultrasound in 1 year prior to her follow up. She is complaining of some excessive fatigue, no recent TFTs done, we will also check TSH, free T4. Plan: -ordered TSH, free T4 -ordered thyroid ultrasound for May 2025 -follow up in 1 year Plan I spent 45 minutes in reviewing the record, seeing the patient and documenting in the medical record. Orders: Orders 2 US thyroid 05/17/25 E04.2 - Nontoxic multinodular goiter Thyroid Stimulating Hormone Today E04.2 - Nontoxic multinodular goiter Free T4 (Free Thyroxine) Today E04.2 - Nontoxic multinodular goiter Patient Instructions: Do blood work today Do thyroid ultrasound in May 2025 Follow up in 1 year Coding Level of Care Code New Pt Level 4 (35988) Diagnoses Multinodular goiter E04.2 Time Spent (min) 45
[2024-07-22 10:39] VITALS: BP 156/82; PULSE 82; BMI 23.8
== END 2024-07-22 11:23 | disposition home or self-care (01) ==
PROVIDERS: PCP Internal Medicine; Visit Provider Student in an Organized Health Care Education/Training Program
DX: E04.2 Nontoxic multinodular goiter (principal)
CPT/HCPCS: 99204

== ENCOUNTER 2024-07-22 11:28 | Outpatient (REF) | payer OTHER, SELFPAY ==
[2024-07-22 14:02] LABS: Free T4 (Free Thyroxine) 1.07 ng/dL (0.71-1.85)
== END 2024-07-22 11:29 | disposition home or self-care (01) ==
LOC: HO.10HDL 11:28
PROVIDERS: Visit Provider Student in an Organized Health Care Education/Training Program
DX: E04.2 Nontoxic multinodular goiter (principal)
CPT/HCPCS: 36415; 84439; 84443

== ENCOUNTER 2024-08-24 10:23 | Outpatient (REF) | payer OTHER, SELFPAY ==
--- NOTE | ~2024-08-24 | US_ITS ---
EXAMINATION: US EXTRACRANIAL CAROTID DUPLEX, BILATERAL CLINICAL INFORMATION: Vision changes COMPARISON: Ultrasound carotid Doppler 06/09 2006. TECHNIQUE: Real-time ultrasound and Doppler techniques (integrating B-mode 2-D vascular images, Doppler spectral analysis and color-flow Doppler imaging) were utilized to interrogate the extracranial carotid arteries, the vertebral arteries and proximal subclavian arteries bilaterally. The degree of stenosis is determined by criteria similar to NASCET. FINDINGS: Right Side: 1. There is no atherosclerotic plaque seen in the bifurcation/proximal ICA region. 2. The common carotid artery PSV proximally is 140 cm/s and distally 69.2 cm/s. 3. The proximal internal carotid artery velocities are 58.6 cm/s systolic and 14.1 cm/s diastolic. 4. The proximal external carotid artery PSV is 108 cm/s. 5. The vertebral artery shows antegrade flow. 6. The subclavian artery waveforms are normal. Left Side: 1. There is none atherosclerotic plaque seen in the bifurcation/proximal ICA region. 2. The common carotid artery PSV proximally is 99.8 cm/s and distally 72.1 cm/s. 3. The proximal internal carotid artery velocities are 50.7 cm/s systolic and 14.1 cm/s diastolic. 4. The proximal external carotid artery PSV is 112 cm/s. 5. The vertebral artery shows antegrade flow. 6. The subclavian artery waveforms are normal. US/US carotid duplex BI IMPRESSION: 1. RIGHT: No hemodynamically significant stenosis. In 2005 patient had 50-60% stenosis. ? Did patient have carotid surgery during the interval. 2. LEFT: No hemodynamically significant stenosis 3. There is no change in the category severity of disease when compared to the previous study dated none. Electronically signed by: Dheeraj Ro MD 08/24/2024 11:23 AM [facility]
--- OUTSIDE RECORDS SUMMARY | 2024-08-24 11:28 | XMS_ITS ---
Author Organization [facility] Marc Lamar Address [address] [facility] [place] [address] Care Team Providers Care Fleet Sales Manager Name Role Phone Kumar Ferreira MD Primary Care Provider Maira Wei, Jane Unavailable [phone] REASON FOR VISIT Balance Encounters Encounter Location Date Provider Diagnosis [facility] [address] [place] [address] 08/10/2024 Jane Black Plan Of Treatment No Information Progress Notes * Caroline BROOKE EDOB:[birth year] (69 yo F)Acc No.[id number]:08/10/2024 Patient:?Caroline BROOKE :1955???Age:69 Y???Sex:Female [address] [facility] [place] [address] * true * Date:? Generated for Miguel courtney/Laura/eTransmitting on:?08/24/2024 11:28 AM EST
--- OUTSIDE RECORDS SUMMARY | 2024-08-24 11:29 | XMS_ITS ---
Author Organization [facility] Address [address] [facility] [place] [address] Care Team Providers Care Dental Office Coordinator Name Role Phone Hanna SHORT, Kumar Primary Care Provider Unakeith Wei, Jane Unavailable [phone] Allergies No Known Allergies Results Component Value Reference Range Notes X ray : Foot, right 3V Reviewed date:05/12/2024 12:28:55 PM Interpretation:See Examination above Performing Lab: Notes/Report: See Examination above REASON FOR VISIT pcp-01/2024, Foot pain, Skin Problem Medications Medication SIG (Take, Route, Frequency, Duration) Notes Start Date End Date Status Ciclopirox Olamine 0.77 % 1 application Externally Twice a day to skin of feet including between the toes for 30 days Active Walking Boot/Pneumatic As directed Wear Daily for Until further notice 01/11/2024 Active Lazerformalyde 10 % as directed Externally Not-Taking Iodine Active Milk Thistle Active Vitamin D Active Zinc Active Social History Alcohol Screen Question Answer Notes Did you have a drink containing alcohol in the p ast year? No Points 0 Interpretation Negative Tobacco use other than smoking: Question Answer Notes Are you an other tobacco user? No Vital Signs Height 5ft 2in in 05/12/2024 Weight 120 lbs 05/12/2024 BMI 21.95 kg/m2 05/12/2024 Encounters Encounter Location Date Provider Diagnosis [facility] [address] [place] [address] 05/12/2024 Jane Black Localized edema R60. 0 ; Closed displaced fracture of proximal phalanx of lesser toe of right foot, sequela S92.511S ; Right foot pain M79.671 ; Pain in right toe(s) M79.674 ; Closed nondisplaced fracture of fifth metatarsal bone of right foot, sequela S92.354S ; Contusion of right foot, sequela S90.31XS and Tinea pedis of both feet B35.3 Assessments Encounter Date Diagnosis (ICD Code) Assessment Notes Treatment Notes Treatment Clinical Notes Section Notes 05/12/2024 Localized edema (ICD-10 - R60.0) 05/12/2024 Closed displaced fracture of proximal phalanx of lesser toe of right foot, sequela (ICD-10 - S92.511S) 05/12/2024 Right foot pain (ICD-10 - M79.671) 05/12/2024 Pain in right toe(s) (ICD-10 - M79.674) 05/12/2024 Closed nondisplaced fracture of fifth metatarsal bone of right foot, sequela (ICD-10 - S92.354S) 05/12/2024 Contusion of right foot, sequela (ICD-10 - S90.31XS) 05/12/2024 Tinea pedis of both feet (ICD-10 - B35.3) Plan Of Treatment Medication Medication Name Sig Start Date Stop Date Notes Ciclopirox Olamine 0.77 % 1 application Externally Twice a day to skin of feet including between the toes for 30 days Next Appt Details Follow Up: prn, Reason: Progress Notes * Caroline BROOKE EDOB:[birth year] (69 yo F)Acc No.[id number]:05/12/2024 Progress Note Patient:?Caroline Brooke Provider:?Jane Wei DPM :1955???Age:69 Y???Sex:Female D ate:05/12/2024 Address:[address] [place] [address], [id number] Pcp:Kumar Ferreira MD Subjective: * Chief Complaints: * ???Pcp-01/2024Foot painSkin Problem * HPI: ???Foot Pain:?Nature:?swelling , tenderness.?Location:?RIGHT.?Duration:?several weeks, thrusday .?Onset:?pts horse stepped on her foot.?Course:?improved , , unresolved.?Aggravated:?any pressure , standing.?Treatments:?ice , elevation , rest/alter normal daily activity , casting/cast boot.?Severity/Quality:?mild, worse at the end of the day.?Skin problems:?Nature:?scaling , redness.?Location:?B/L .?Duration:?several days.?Course:?worse.? * ROS:?General/Constitutional:?Nausea?denies.?Vomiting?denies.?Hunger Thirst?denies.?Loss appetite?denies.?Chills?denies.?Fatigue?denies.?Fever?denies.?Night Sweats?denies.?Unexplained weight loss?denies.?Ophthalmologic:?Blurred vision?denies.?Red eye?denies.?HEENTM:?Dentures?denies.?Dizziness?denies.?Glasses/contacts?admits.?Retinopathy?de nies.?Blurred/double vision?denies.?TMJ?denies.?Discharge/drainage?denies.?Implants?denies.?Hard of hearing denies.?Difficulty chewing/swallowing/speaking?denies.?Nose bleeds?denies.?Sore mouth?denies.?Swollen glands?denies.?Respiratory:?On Oxygen?denies.?Pneumonia/pleurisy?denies.?Bronchitis?denies.?Emphysema?denies.?C oughing?denies.?Cough blood?denies.?Shortness of breath?denies.?Wheezing?denies.?Cardiovascular:?Pacemaker?denies.?MVP?denies.?WPW?denies.?CHF?denies.?Heart attack?denies.?Septal defect?denies.?Rapid beat?denies.?Chest pain ?denies.?Atrial Fib.?denies.?Murmur/Palpitations?denies.?Gastrointestinal:?Hemorrhoids?denies.?Stomach/Abdominal pain?denies.?Dark blood stool?denies.?Irritable bowel ?denies.?Constipation?denies.?Diarrhea?denies.?Vomiting?denies.?Hematology:?Swelling?denies.?Bruising?denies.?Bleeding problem?denies.?Genitourinary:?Blood urine?denies.?Frequent/Painfu/urination/bladder control?denies.?Kidney stones?admits.?Infection (UTI)?denies.?Nephropathy?denies.?Musculoskeletal:?Hammertoes?denies.?Bunions?denies.?Scoliosis/kyphosis?denies.?Muscle cramps / walking?denies.?Generalized aches and pains?admits.?Weakness?denies.?Integ.:?Jeffries?denies.?Scars?denies.?Corns/calluses?denies.?Ingrown nails?denies.?Painful nails?admits.?Rashes?denies.?Neurologic:?Difficulty sleeping?denies.?Bipolar?denies.?Brain disorder?denies.?Balance trouble?denies.?Confusion?denies.?Fainting/blackouts?denies.?Headache?denies.?Tr emors?denies.? * Medical History:? * Surgical History:?appendecto my 1996elbow sx 1970dental implant 2012Radical Neck 1970laser therapy 06/2014fibroids myomectomy 1996cataract surgery 03/20/2020, 04/2020throid BX 09/2022Eye Surgery- Laser 11/2022 * Hospitalization/Major Diagno stic Procedure:?Denies Past Hospitalization * Family History:?Mother: dece ased, foot problems, kidney cancer, diagnosed with Unspecified cerebral artery occlusion with cerebral infarction, Other malignant neoplasm of unspecified site, Other specified conditions influencing health status.?Father: , diagnosed with Family history of arthritis.?Paternal Grand Mother: diabetes.?Paternal Grand Father: kidney/liver disease.?Maternal Grand Father: kidney/liver disease.?Paternal aunt: cancer.?Siblings: Brother- cancer, diagnosed with Other malignant neoplasm of unspecified site.?Maternal Grand Mother: diagnosed with Diabetic - NIDDM.?Maternal aunt: diagnosed with Other malignant neoplasm of unspecified site.?Cousin: defects.? * Social History:?Tobacco Use:?Tobacco Use/Smoking?Are you a:: nonsmoker , Additional Findings: Tobacco Non-User: Current non-smoker.?Tobacco use other than smoking?Are you an other tobacco user??No ???Drugs/Alcohol:?Drugs?Have you used drugs other than those for medical reasons in the past 12 months??No ?Alcohol Screen?Did you have a drink containing alcohol in the past year??No ?Points?0 ?Interpretation?Negative ???Miscellaneous:?Caffeine: yes, Herbal Tea occassionally. ?no Children. ?Exercise: yes, yoga, swimming, Natural Horsemanship. ?Marital status: . ?Occupation: Admin Assist - [employer] * Medications:?TakingIodine Mi lk Thistle Vitamin D Zinc Walking Boot/Pneumatic As directed Wear DailyTaking Iodine Taking Milk Thistle Taking Vitamin D Taking Zinc Taking Walking Boot/Pneumatic As directed Wear DailyNot-Taking/PRNLazerformalyde 10 % Solution as directed Externally Medication List reviewed and reconciled with the patientNot-Taking/PRN Lazerformalyde 10 % Solution as directed Externally Medication List reviewed and reconciled with the patient * Allergies:?N.K.D.A.yes[Aller gies Verified] Objective: * Vitals:?Ht: 5ft 2in, Wt:120, BMI:21.95, Shoe size: 7.5-8 etra wide, Ht-cm: 157.48 cm, Wt-k.43 kg. * Examination: ???Neurological: ?SENSORY:?Neurological exam reveals intact sensorium, pain sensation normal, vibration sensation intact, pinprick sensation is normal in the lower extremities, Pt denies, anesthesia, burning, paresthesia, tingling, B/L.?Dermatologic: ?SKIN FINDINGS:?Skin shows sign(s) of, inflammation, interdigital maceration, vesicles, pruritus, B/L.?Orthopedic: ?MUSCLE STRENGTH:?5/5 all groups in a symmetrical fashion , B/L.?DIGITAL DEFORMITIES:?Reveals mild pain to palpation, swelling,? T9 and base of the styloid process of the 5th right.?X-Rays - IMAGING REPORT: ?Clinical Indication(s):?Evaluate for Fracture.?Views:?3 views of Foot , RIGHT.?Findings:?increase in soft tissue contour and density at the symptomatic site , radiolucent soft tissue gas absent.?Fracture:?communted mod. displaced , base of , proximal phalange , T9 stephan callus present, , fracture non displaced medial aspect of the 5th base,?increased?stephan callus present- 90 %?.? Assessment: * Assessment: 1.?Localized edema - R60.0?2 .?Closed displaced fracture of proximal phalanx of lesser toe of right foot, sequela - S92.511S (Primary)?3.?Right foot pain - M79.671?4. Pain in right toe(s) - M79.674?5.?Closed nondisplaced fracture of fifth metatarsal bone of right foot, sequela - S92.354S?6.?Contusion of right foot, sequela - S90.31XS?7. Tinea pedis of both feet - B35.3, Acute problem, Uncomplicated (3),Rx drug management (4)? Plan: * Treatment: 2.?Tinea pedis of both feet? Start Ciclopirox Olamine Cream, 0.77 %, 1 application, Externally, Twice a day to skin of feet including between the toes, 30 days, 60, Refills 2.?? * Procedure Codes:?74124 X-RAY EXAM OF RIGHT FOOT 3V, Modifiers: 26 , RT * Preventive Medicine:? ??Counseling:?Discussion:?-14: Office or other outpatient visit for the evaluation and management of an established patient, which required a medically appropriate history and/or examination and MODERATE level of DECISION MAKING for: 1 OR MORE CHRONIC PROBLEM(S) THATS WORSENING, 2 STABLE CHRONIC PROBLEMS, A NEWLY DIAGNOSED PROBLEM WITH UNCERTAIN PROGNOSIS, AN ACUTE COMPLICATED INJURY WITH MULTIPLE TREATMENT OPTIONS, OR AN ACUTE PROBLEM WITH ACCOMPANYING SYSTEMIC SYMPTOMS, THAT POSE(S) A MODERATE RISK OF MORBIDITY. THIS CONDITION MAY ALSO INCLUDE RX DRUG MANAGEMENT, OR A DECISON FOR MINOR SURGERY. The visit on the day of the encounter encompassed interpreting the data and educating the patient as to the nature of their condition, treatment options available according to their individual PMH, meds, allergies, and overall health/living conditions, as well as any potential risks or complications that may occur from a failure to adhere to, and participate in, the recommended course of therapy. The discussion included a complete verbal, and/or written explanation of the examination results, any x-rays taken, the proposed diagnosis, and outline of the treatment plan. A schedule for future care needs was also explained. The patient verbalized an understanding of the instructions at this time and agreed to be an active participant in their treatment. If the patient should think of any questions or concerns after the visit, I have encouraged the patient to call the office.?Tinea Pedis:?The patient was counseled on the diagnosis, potential etiologies, and treatment options for their skin condition. We discussed the risks and benefits of each option from performing no treatment, to utilizing OTC topical skin creams, prescription topical creams, customized compounded topical medications, and, if necessary, to utilize oral antifungal therapy. We discussed the advantages and disadvantages of each possible treatment and importance for adherence to all the recommended therapies for optimum success and avoid potential complications such as open sore/infection/possible hospitalization. We discussed the potential effectiveness of each topical preparation as well as each ones possible side effects and/or patient medication interactions if oral therapy is selected. Patient questions re: the advantages and disadvantages of each treatment choice, medication use/dosage, successful outcomes, and application consistency were reviewed and the patient verbalized that all answers were clearly understood. The patient was told they can help alleviate symptoms by utilizing moisture absorbant innersoles with activated charcoal and baking soda, applying antifungal sprays daily, aerating toe web spaces at night by putting cotton or lambs wool between the toes, alternating shoe gear daily if possible so they can dry out, changing socks at least once during the day, wearing well-ventilated shoes or sandals. The patient has decided to apply antifungal skin creams to their feet as directed. Rx was sent to their pharmacy at the time of visit- Betadine swab to the interspace.?X-rays:?Discussed and reviewed the X-rays with the patient. We discussed how the findings relate to the patients symptoms/complaints. Answered any and all questions., The healing process on average can take 6-8 weeks depending the bone,type of break, age and overall health. Fracture has healed enought that pt can resume all normal activty and wear appropiate foot wear.? * Follow Up:?prn * Images: * Sign off status: Completed true * Provider:?Jane Wei DPM Date:?2023 Generated for Miguel courtney/Laura/Chloe on:?08/24/2024 11:28 AM EST History and Physical Notes * HPI (History of Present Illness) Category Sub-Category Detail Notes Category Not es Skin problems Nature: scaling , redness Location: B/L Duration: several days Course: worse Foot Pain Nature: swelling , tenderness Location: RIGHT Duration: several weeks, thrus day Onset: pts horse stepped on her foot Course: improved , , unresol nohemi Aggravated: any pressure , stand ing Treatments: ice , elevation , re st/alter normal daily activity , casting/cast boot Severity/Quality: mild, worse at the e of the day Examination Category Sub-Category Detail Notes Category Not es Neurological SENSORY: Neurological exa m reveals intact sensorium, pain sensation normal, vibration sensation intact, pinprick sensation is normal in the lower extremities, Pt denies, anesthesia, burning, paresthesia, tingling, B/L Dermatologic SKIN FINDINGS: Skin shows sign( s) of, inflammation, interdigital maceration, vesicles, pruritus, B/L Orthopedic DIGITAL DEFORMITIES: Reveals mil d pain to palpation, swelling, T9 and base of the styloid process of the 5th right MUSCLE STRENGTH: 5/5 all groups in a symmetrical fashion , B/L X-Rays - IMAGING REPORT Findings: increase in soft tissue contour and density at the symptomatic site , radiolucent soft tissue gas absent Fracture: communted mod. displ aced , base of , proximal phalange , T9 stephan callus present, , fracture non displaced medial aspect of the 5th base, increased stephan callus present- 90 % Views: 3 views of Foot , RI GHT Clinical Indication(s): Evaluate for Fra cture
--- OUTSIDE RECORDS SUMMARY | 2024-08-24 11:29 | XMS_ITS | Patient Health Record ---
Author Organization [facility] yanet Flynn Address [address] [place] [address] Care Team Providers Care Channeler Runner Name Role Phone Kumar Ferreira MD Primary Care Provider Lenakeith painter Black, Jane Unavailable [phone] Allergies No Known Allergies Results Component Value Reference Range Notes X ray : Foot, right 3V Reviewed date:01/11/2024 02:12:13 PM Interpretation:See Examination above Performing Lab: Notes/Report: See Examination above X ray : Foot, right 3V Reviewed date:02/29/2024 05:41:03 PM Interpretation:See Examination above Performing Lab: Notes/Report: See Examination above X ray : Foot, right 3V Reviewed date:05/12/2024 12:28:55 PM Interpretation:See Examination above Performing Lab: Notes/Report: See Examination above Reason For Referral No Information Medications Medication SIG (Take, Route, Frequency, Duration) Notes Start Date End Date Status Ciclopirox Olamine 0.77 % 1 application Externally Twice a day to skin of feet including between the toes for 30 days Active Walking Boot/Pneumatic As directed Wear Daily for Until further notice 01/11/2024 Active Lazerformalyde 10 % as directed Externally Not-Taking Vitamin D Active Zinc Active Iodine Active Milk Thistle Active Social History Alcohol Screen Question Answer Notes Did you have a drink containing alcohol in the p ast year? No Points 0 Interpretation Negative Tobacco use other than smoking: Question Answer Notes Are you an other tobacco user? No Problems Problem Type SNOMED Code ICD Code Onset Dates Problem Status W/U Status Risk Notes Problem Acquired hammer toe of right foot ([id number] 105) Other hammer toe(s) (acquired), right foot (M20.41) Active confirmed Problem Acquired hammer toe of left foot (6409351565696 103) Other hammer toe(s) (acquired), left foot (M20.42) Active confirmed Vital Signs Blood pressure diastolic 70 mm Hg 02/29/2024 Height 5ft 2in in 05/12/2024 Blood pressure systolic 120 mm Hg 02/29/2024 Weight 120 lbs 05/12/2024 BMI 21.95 kg/m2 05/12/2024 Procedures Procedure Date Ordered Date Performed Result Body Sit e 46731-ZCTOBSW NAIL, 1-5 02/01/2024 N/A Encounters Encounter Location Date Provider Diagnosis [address] [address] 01/11/2024 Jane Black Closed displaced fracture of proximal phalanx of lesser toe of right foot, initial encounter S92.511A ; Closed nondisplaced fracture of fifth metatarsal bone of right foot, initial encounter S92.354A ; Localized edema R60.0 ; Contusion of right foot, initial encounter S90.31XA ; Contusion of toe without damage to nail, unspecified laterality, unspecified toe, initial encounter S90.129A ; Pain of toe of right foot M79.674 and Right foot pain M79.[address] [address] 02/01/2024 Jane Black Localized edema R60. 0 ; Pain of toe of right foot M79.674 ; Right foot pain M79.671 ; Tinea unguium B35.1 ; Pain in right toe(s) M79.674 ; Pain in left toe(s) M79.675 ; Closed displaced fracture of proximal phalanx of lesser toe of right foot with routine healing, subsequent encounter S92.511D ; Nondisplaced fracture of fifth metatarsal bone, right foot, subsequent encounter for fracture with routine healing S92.354D and Contusion of right foot, subsequent encounter S90.31XD [address] [address] 02/29/2024 Jane Black Localized edema R60. 0 ; Closed displaced fracture of proximal phalanx of lesser toe of right foot, sequela S92.511S ; Right foot pain M79.671 ; Pain in right toe(s) M79.674 ; Closed nondisplaced fracture of fifth metatarsal bone of right foot, sequela S92.354S and Contusion of right foot, sequela S90.31XS [facility] [address] [address] 05/12/2024 Jane Wei Localized edema R60. 0 ; Closed displaced fracture of proximal phalanx of lesser toe of right foot, sequela S92.511S ; Right foot pain M79.671 ; Pain in right toe(s) M79.674 ; Closed nondisplaced fracture of fifth metatarsal bone of right foot, sequela S92.354S ; Contusion of right foot, sequela S90.31XS and Tinea pedis of both feet B35.3 [facility] [address] [address] 01/08/2024 [facility] [address] [facility] [address] 01/19/2024 [facility] [address] 02/29/2024 [facility] [address] 08/10/2024 Janemata Wei Assessments Encounter Date Diagnosis (ICD Code) Assessment Notes Treatment Notes Treatment Clinical Notes Section Notes 01/11/2024 Closed nondisplaced fracture of fifth metatarsal bone of right foot, initial encounter (ICD-10 - S92.354A) Patient Educated with: RICE THERAPY.pdf (RICE THERAPY.pdf) 01/11/2024 Closed displaced fracture of proximal phalanx of lesser toe of right foot, initial encounter (ICD-10 - S92.511A) 02/01/2024 Localized edema (ICD-10 - R60.0) 02/01/2024 Pain of toe of right foot (ICD-10 - M79.674) 02/29/2024 Localized edema (ICD-10 - R60.0) 02/29/2024 Closed displaced fracture of proximal phalanx of lesser toe of right foot, sequela (ICD-10 - S92.511S) 05/12/2024 Localized edema (ICD-10 - R60.0) 02/29/2024 Right foot pain (ICD-10 - M79.671) 02/01/2024 Right foot pain (ICD-10 - M79.671) 01/11/2024 Localized edema (ICD-10 - R60.0) 05/12/2024 Closed displaced fracture of proximal phalanx of lesser toe of right foot, sequela (ICD-10 - S92.511S) 01/11/2024 Contusion of right foot, initial encounter (ICD-10 - S90.31XA) 02/01/2024 Tinea unguium (ICD-10 - B35.1) 02/29/2024 Pain in right toe(s) (ICD-10 - M79.674) 05/12/2024 Right foot pain (ICD-10 - M79.671) 02/29/2024 Closed nondisplaced fracture of fifth metatarsal bone of right foot, sequela (ICD-10 - S92.354S) 02/01/2024 Pain in right toe(s) (ICD-10 - M79.674) 01/11/2024 Contusion of toe without damage to nail, unspecified laterality, unspecified toe, initial encounter (ICD-10 - S90.129A) 05/12/2024 Pain in right toe(s) (ICD-10 - M79.674) 05/12/2024 Closed nondisplaced fracture of fifth metatarsal bone of right foot, sequela (ICD-10 - S92.354S) 01/11/2024 Pain of toe of right foot (ICD-10 - M79.674) 02/01/2024 Pain in left toe(s) (ICD-10 - M79.675) 02/29/2024 Contusion of right foot, sequela (ICD-10 - S90.31XS) 02/01/2024 Closed displaced fracture of proximal phalanx of lesser toe of right foot with routine healing, subsequent encounter (ICD-10 - S92.511D) 05/12/2024 Contusion of right foot, sequela (ICD-10 - S90.31XS) 01/11/2024 Right foot pain (ICD-10 - M79.671) 05/12/2024 Tinea pedis of both feet (ICD-10 - B35.3) 02/01/2024 Nondisplaced fracture of fifth metatarsal bone, right foot, subsequent encounter for fracture with routine healing (ICD-10 - S92.354D) 02/01/2024 Contusion of right foot, subsequent encounter (ICD-10 - S90.31XD) Plan Of Treatment Pending Test Test Name Order Date X ray : Foot, right 3V 02/01/2024 45383-[id number] NAIL, 1-07/21/2011 50906-WGBKFPK NAIL, -01/23/2012 81276-RQHNVOS NAIL, -03/29/2012 53445-XKDUQZQ NAIL, -05/17/2012 79518-VYVBZCR NAIL, -02/27/2022 80665-GBFQFEF NAIL, -05/08/2022 56342-FJJNDIE NAIL, -09/18/2022 13454-IIQUMGI NAIL, -12/11/2022 17466-QIRPMTM NAIL, -03/12/2023 10682-XAMSUTE NAIL, -02/01/2024 88754-Jtjc Destruction, -12/11/2022 17423-Ymgc Destruction, -09/18/2022 21445-Muyg Destruction, -14 05/08/2022 08732-Nbhl Destruction, -14 02/27/2022 21092-Uggf Destruction, -14 09/26/2015 29773-Evke Destruction, -14 03/29/2012 01388-Cmqu Destruction, -14 01/23/2012 19393-Phgh Destruction, -14 07/21/2011 Insurance Providers Payer Name Payer Address Payer Phone Subscriber Number Group Number Insured Name Patient Relationship to Insured Coverage Start Date Coverage End Date [facility] [address] [place] [phone] [id number] Caroline Fan Self - patient is the insured Medical (General) History Medical History History ICD Code transfusions mumps measles chicken pox Broken Bones Warts Cataracts Kidney stones Surgical History Surgery Date(Month/Year) appendectomy 1995 elbow sx 1970 dental implant 2011 Radical Neck 1970 laser therapy 06/2014 fibroids myomectomy 1996 cataract surgery 03/20/2020, 04/2020 throid BX 09/2022 Eye Surgery- Laser 11/2022
--- OUTSIDE RECORDS SUMMARY | 2024-08-24 11:29 | XMS_ITS ---
Author Organization [facility] Marc Lamar Address [address] [place] [address] Care Team Providers Care Oil Processing Technician Name Role Phone Kumar Ferreira MD Primary Care Provider Maira Wei, Jane Unavailable [phone] REASON FOR VISIT Records/Xrays Encounters Encounter Location Date Provider Diagnosis [facility] [address] [place] [address] 02/29/2024 Jane Black Plan Of Treatment No Information Progress Notes * Caroline BROOKE EDOB:[birth year] (68 yo F)Acc No.[id number]:02/29/2024 Patient:?Caroline Brooke :1955???Age:68 Y???Sex:Female Address:[address] [facility] [place] [address] * true * Date:? Generated for Rebecai roz/Laura/eTransmitting on:?08/24/2024 11:28 AM EST
== END 2024-08-24 10:24 | disposition home or self-care (01) ==
LOC: HO.HMGCX 10:23
PROVIDERS: PCP Internal Medicine; Visit Provider Internal Medicine
DX: H53.2 Diplopia (principal)
CPT/HCPCS: 93880

== ENCOUNTER → 2024-08-24 10:30 | Outpatient (BNV) | payer OTHER, SELFPAY | PROVIDERS: PCP Internal Medicine; Visit Provider Radiology Diagnostic Radiology | DX: H53.9 Unspecified visual disturbance (principal) | CPT/HCPCS: 93880 ==

== ENCOUNTER 2025-05-17 08:41 | Outpatient (REF) | payer OTHER, SELFPAY ==
--- OUTSIDE RECORDS SUMMARY | 2024-07-14 03:15 | XMS_ITS ---
Author Organization Kumar Ferreira MD Address [address] [place] [phone] Care Team Providers Care Lab Instructor Name Role Phone Kumar Ferreira Primary Care Provider Results Component Value Reference Range Notes UA ClnCatch+Micro w/rflx Cul t Reviewed date:08/16/2024 08:15:11 AM Interpretation:repeat u/s 08-15-24 Performing Lab:[facility], [address] [place] [id number] Notes/Report: Urine, Clean Catch Color Urine Yellow Appearance Urine Cloudy PH 6.0 5.0-9.0 Glucose Urine UA Negative Negative mg/dL Urine Blood Trace Negative Specific [place] - Urine 1.015 1.005-1.025 Urine Protein Negative Neg-Trace mg/dL Urine Ketones Negative Negative mg/dL Nitrite Urine Negative Negative Leukocyte Esterase Urine Large (3+) Negative RBC Urine 0-2 0-2 /HPF WBC Urine >50 0-5 /HPF Squamous Epithelial Cell Urine 11-20 0-2 /HPF Bacteria Urine 3+ None Seen Hyaline Casts Urine 3-5 0-2 /LPF REASON FOR VISIT repeat U/A ( 3 week ) Encounters Encounter Location Date Provider Diagnosis Kumar Ferreira MD [address] [place] [phone] 07/14/2024 Kumar Ferreira Urinary tract infection, site not specified N39.0 and Hematuria, unspecified R31.9 Assessments Encounter Date Diagnosis (ICD Code) Assessment Notes Treatment Notes Treatment Clinical Notes Section Notes 07/14/2024 Urinary tract infection, site not specified (ICD-10 - N39.0) 07/14/2024 Hematuria, unspecified (ICD-10 - R31.9) Plan Of Treatment Next Appt Details Provider Name:Kumar Leblanc ier, 06/26/2025 07:45:00 AM, [address] [facility], [address], [place], [place], [phone], Provider Name:Kumar Leblanc ier, 07/03/2025 09:30:00 AM, [address] [facility], [address], [place], [place], [phone], Progress Notes * Caroline BROOKE EDOB:[birth year] (70 yo F)Acc No.[id number]:07/14/2024 Progress Note Patient: Caroline STEWART Provider: Marika Ferreira MD :1955 A ge:69 Y S ex:Female Date:07/14/2024 Address:[address] [place] [address], [id number] Subjective: * Chief Complaints: * 1 . repeat U/A ( 3 week ). * Medical History: Objective: * Vitals: Assessment: * Assessment: 1. U rinary tract infection, site not specified - N39.0 (Primary) 2 . H ematuria, unspecified - R31.9 Plan: * Treatment: 2. H ematuria, unspecified L AB: UA ClnCatch+Micro w/rflx Cult (Collection Date & Time - 07/14/2024 07:15 AM) * * The named appointment provid er may or may not be the originator of this progress note, and it is not deemed complete until electronically signed by the appointment provider. Sign off status: Pending * Provider: Marika Ferreira MD Date: 1 09/14/2023 Generated for Miguel courtney/Laura/eTrenesmitting on: 09:11 AM EDT
--- OUTSIDE RECORDS SUMMARY | 2024-07-14 11:23 | XMS_ITS ---
Author Organization Kumar Ferreira MD Address [address] [place] [phone] Care Team Providers Care Food And Nutrition Services Supervisor Name Role Phone Kumar Ferreira Primary Care Provider REASON FOR VISIT U/A faxed Encounters Encounter Location Date Provider Diagnosis Kumar Ferreira MD [address] [place] [phone] 07/14/2024 Kumar Ferreira Plan Of Treatment Next Appt Details Provider Name:Kumar Leblanc ier, 06/26/2025 07:45:00 AM, [address] [place] [address], [address] [place] [address], [phone], Provider Name:Kumar Leblanc ier, 07/03/2025 09:30:00 AM, [address] [place] [address], [address], [phone], Progress Notes * Caroline BROOKE EDOB:[birth year] (69 yo F)Acc No.[id number]:07/14/2024 Patient: Patricia Caroline manjarrez :1955 A ge:69 Y S ex:Female Address:[address] [place] [id number] * true * Date: Generated for Printi ng/Faxing/eTransmitting on: 09:12 AM EDT
--- OUTSIDE RECORDS SUMMARY | 2024-08-15 07:15 | XMS_ITS ---
Author Organization Kumar Ferreira MD Address [address] [place], [place] [id number] Care Team Providers Care Surveying Or Spatial Science Technician Name Role Phone Kumar Ferreira Primary Care Provider Allergies No Known Allergies Results Component Value Reference Range Notes UA ClnCatch+Micro w/rflx Cul t Reviewed date:08/15/2024 02:16:44 PM Interpretation: Performing Lab:[facility], [address] [place] [id number] Notes/Report: Urine, Clean Catch Color Urine Yellow Appearance Urine Clear PH 5.0 5.0-9.0 Glucose Urine UA Negative Negative mg/dL Urine Blood Negative Negative Specific [place] - Urine 1.020 1.005-1.025 Urine Protein Negative Neg-Trace mg/dL Urine Ketones Negative Negative mg/dL Nitrite Urine Negative Negative Leukocyte Esterase Urine Moderate (2+) Negative RBC Urine 0-2 0-2 /HPF WBC Urine 11-20 0-5 /HPF Squamous Epithelial Cell Urine 0-2 0-2 /HPF Bacteria Urine None Seen None Seen Hyaline Casts Urine 0-2 0-2 /LPF REASON FOR VISIT blurred vision x 6 months, repeat U/A Medications Medication SIG (Take, Route, Frequency, Duration) Notes Start Date End Date Status Estrace 0.1 MG/GM 1/2 inch Vaginal 3 w kalispel per month for 90 days 06/27/2024 Not-Taking Milk Thistle 1000 MG as directed Orally once a day Active Magnesium 300 MG 1 capsule with a lita l Orally Once a day Active Vitamin D 10 MCG/ML as directed Orally Active Problems Problem Type SNOMED Code ICD Code Onset Dates Problem Status W/U Status Risk Notes Problem [id number] Tonsillith (J35.8) Active confirmed Vital Signs Blood pressure systolic 142 mm Hg 08/15/19 25 Blood pressure diastolic 80 mm Hg 025 Height 62 in 08/15/2024 Weight 125 lbs 08/15/2024 BMI 22.86 kg/m2 08/15/2024 Encounters Encounter Location Date Provider Diagnosis Kumar Ferreira MD [address] [place] [id number] 08/15/2024 Kumar Ferreira Hematuria R31.9 ; Vision changes H53.9 and Tonsillith J35.8 Assessments Encounter Date Diagnosis (ICD Code) Assessment Notes Treatment Notes Treatment Clinical Notes Section Notes 08/15/2024 Hematuria (ICD-10 - R31.9) 08/15/2024 Vision changes (ICD-10 - H53.9) will have her take baby asa daily in case it is embolic and will get repeat us/ order faxed to [facility] CS dept 08/15/2024 Tonsillith (ICD-10 - J35.8) referral to dr le/ info given to patient she will call to set up her own appt Plan Of Treatment Treatment Notes Assessment Notes Vision changes will have her take b madhuri asa daily in case it is embolic and will get repeat us/ order faxed to [facility] dept Tonsillith referral to dr lavell gabriel/ info given to patient she will call to set up her own appt Pending Test Test Name Order Date US CAROTID BILATERAL DOPPLER 08/15/2024 Next Appt Details Follow Up: 4 Weeks, Reason: Provider Name:Kumar cruz, 06/26/2025 07:45:00 AM, [address] [place] [address], [place] [address], [place], [place], [phone], Provider Name:Kumar cruz, 07/03/2025 09:30:00 AM, [address] [place] [address], [place] [address], [place], [place], [phone], Progress Notes * Caroline BROOKE EDOB:[birth year] (69 yo F)Acc No.[id number]:08/15/2024 Progress Notes Patient: Caroline Hernandez Provider: Marika Ferreira MD :1955 A ge:69 Y S ex:Female Date:08/15/2024 Address:[address] [place] [address], [facility] Subjective: * Chief Complaints: * B lurred vision x 6 monthsrepeat U/A * HPI: S ymptom(s): patient is a 69 yo female here with complaint of blurred vision, blurred vision happenend twice in the last 6 months. left eye drifted off to the left. lasted 10 minutes./ no headache/ she does get ophthalmic migraines. not sure if she had a migraine before this. * ROS: G eneral/Constitutional: Denies C hills. D enies F atigue. D enies F ever. D enies H eadache. O phthalmologic: Patient complaining of c /o blurred vision x 6 months. E NT: Patient denies d ecreased sense of smell , any loss of taste , sore throat. D enies S ore throat. R espiratory: Denies C ough. D enies S hortness of breath at rest. D enies S hortness of breath with exertion. G astrointestinal: Denies D iarrhea. D enies N ausea. M usculoskeletal: Patient denies m uscle aches. P eripheral Vascular: Patient denies r ed and blue toes. * Medical History: * Surgical History: * Hospitalization/Major Diagno stic Procedure: * Medications: T akingMilk Thistle 1000 MG Capsule as directed Orally once a dayMagnesium 300 MG Capsule 1 capsule with a meal Orally Once a dayVitamin D 10 MCG/ML Liquid as directed Orally Taking Milk Thistle 1000 MG Capsule as directed Orally once a dayTaking Magnesium 300 MG Capsule 1 capsule with a meal Orally Once a dayTaking Vitamin D 10 MCG/ML Liquid as directed Orally Not-Taking/PRNEstrace 0.1 MG/GM Cream 1/2 inch Vaginal 3 week per monthMedication List reviewed and reconciled with the patientNot-Taking/PRN Estrace 0.1 MG/GM Cream 1/2 inch Vaginal 3 week per monthMedication List reviewed and reconciled with the patient * Allergies: N .K.D.A.yes[Allergies Verified] Objective: * Vitals: H t: 62, Wt:125, BMI:22.86, BP:142/80, Repeat BP:138/80. * Examination: G eneral Examination: GENERAL APPEARANCE: a lert, well hydrated, in no distress.? THROAT: h as tonsilith on left side. NECK/THYROID: n deven supple , carotid pulse normal , no carotid bruit. HEART: n o murmurs, rubs, gallops , regular rate and rhythm. Assessment: * Assessment: 1. H ematuria - R31.9 (Primary) 2 . V ision changes - H53.9 3 . T onsillith - J35.8 Plan: * Treatment: 2. V ision changes I maging: US CAROTID BILATERAL DOPPLER Notes: will have her take baby asa daily in case it is embolic and will get repeat us/ order faxed to [facility] dept 3. T onsillith Notes: referral to dr le/ info given to patient she will call to set up her own appt ? * Procedure Codes: * Follow Up: 4 Weeks * * Sign off status: Completed true * Provider: Marika Ferreira MD Date: 0 08/15/2024 Generated for Miguel courtney/Laura/eTransmitting on: 1 09:12 AM EDT History and Physical Notes * HPI (History of Present Illness) Category Sub-Category Detail Notes Category Not es Symptom(s) patient is a 69 yo female here with complaint of blurred vision, blurred vision happenend twice in the last 6 months. left eye drifted off to the left. lasted 10 minutes./ no headache/ she does get ophthalmic migraines. not sure if she had a migraine before this. Examination Category Sub-Category Detail Notes Category Not es General Examination GENERAL APPEARANCE: alert, w ell hydrated, in no distress THROAT: has tonsilith on lef t side NECK/THYROID: neck supple , caroti d pulse normal , no carotid bruit HEART: no murmurs, rubs, ga llops , regular rate and rhythm
--- OUTSIDE RECORDS SUMMARY | 2024-09-15 05:00 | XMS_ITS ---
Author Organization Kumar Ferreira MD Address [address] [place] [phone] Care Team Providers Care Licensed Massage Therapist Name Role Phone Kumar Ferreira Primary Care Provider [phone] Allergies No Known Allergies REASON FOR VISIT 4 week, video [phone], c/o productive cough, congestion runny nose, x 6 days did not test forCovid was prescribed an herbal treatment. Medications Medication SIG (Take, Route, Frequency, Duration) Notes Start Date End Date Status Magnesium 300 MG 1 capsule with a lita l Orally Once a day Active Milk Thistle 1000 MG as directed Orally once a day Active Estrace 0.1 MG/GM 1/2 inch Vaginal 3 w [place] per month for 90 days 06/27/2024 Not-Taking Vitamin D 10 MCG/ML as directed Orally Active Vital Signs Height 62 in 09/15/2024 weght at home is 120 BP not taken at home Encounters Encounter Location Date Provider Diagnosis Kumar Ferreira MD [address] [place] [phone] 09/15/2024 Kumar Ferreira Transient diplopia H53.2 and Tonsillith J35.8 Assessments Encounter Date Diagnosis (ICD Code) Assessment Notes Treatment Notes Treatment Clinical Notes Section Notes 09/15/2024 Transient diplopia (ICD-10 - H53.2) has not had any further problems. if it recurs will get mri 09/15/2024 Tonsillith (ICD-10 - J35.8) dr le's office would not see her so is going to [facility] Plan Of Treatment Treatment Notes Assessment Notes Transient diplopia has not had any furt her problems. if it recurs will get mri Tonsillith dr le's office would not see her so is going to [facility] Next Appt Details Provider Name:Kumar Leblanc ier, 06/26/2025 07:45:00 AM, [address], [address], [place], [place], [phone], Provider Name:Kumar Leblanc ier, 07/03/2025 09:30:00 AM, [address], [address], [place], [place], [phone], Progress Notes * Caroline BROOKE EDOB:[birth year] (69 yo F)Acc No.[id number]:09/15/2024 Patient: Patricia Caroline COULTER Provider: Marika Ferreira MD :1955 A ge:69 Y S ex:Female Date:09/15/2024 Address:[address] [place] [address], [id number] Subjective: * Chief Complaints: * 4 weekVideo [phone]/o productive cough, congestion runny nose, x 6 days did not test for Covid was prescribed an herbal treatment. * HPI: S ymptom(s): Telehealth L ocation of provider rendering services: [address] [facility], [address], ocation of patient: a t address listed in demographics for today's visit, P atient identification confirmed using: JOHN Clay ame, T elehealth method: V ideo conference where patient is visible to the provider of care, C onsent: P atient verbally consented to treatment, Patient verbally consented to billing insurance company, Patient informed of any privacy concerns related to method of visit, T otal time spend talking with patient (minutes) 1 8. patient is a 69 yo female here for 4 week follow up visit o f visiion changes. saw her alternative doctor. he thought that it could be one of anything. didn't think it was covid or rsv. started about 8 days ago..getting better. the formula is helping with the cough. has not had any other recurrence of the vision. carotid ultrasound was normal. * ROS: G eneral/Constitutional: Denies C hills. D enies F atigue. D enies F ever. D enies H eadache. E NT: Patient denies d ecreased sense of smell, any loss of taste, sore throat. D enies S ore throat. R espiratory: Admits C ough. D enies S hortness of breath at rest. D enies S hortness of breath with exertion. A dmits S putum production. G astrointestinal: Denies D iarrhea. D enies N ausea. M usculoskeletal: Patient denies m uscle aches. P eripheral Vascular: Patient denies r ed and blue toes. * Medical History: * Surgical History: * Hospitalization/Major Diagno stic Procedure: * Medications: T akingMilk Thistle 1000 MG Capsule as directed Orally once a day Magnesium 300 MG Capsule 1 capsule with a meal Orally Once a day Vitamin D 10 MCG/ML Liquid as directed Orally Taking Milk Thistle 1000 MG Capsule as directed Orally once a day Taking Magnesium 300 MG Capsule 1 capsule with a meal Orally Once a day Taking Vitamin D 10 MCG/ML Liquid as directed Orally Not-Taking/PRNEstrace 0.1 MG/GM Cream 1/2 inch Vaginal 3 week per month Medication List reviewed and reconciled with the patientNot-Taking/PRN Estrace 0.1 MG/GM Cream 1/2 inch Vaginal 3 week per month Medication List reviewed and reconciled with the patient * Allergies: N .K.D.A.yes[Allergies Verified] Objective: * Vitals: H t: 62. weght at home is 120 BP not taken at home. * Examination: G eneral Examination: GENERAL APPEARANCE: a lert, well hydrated, in no distress.? HEAD: n ormocephalic. Assessment: * Assessment: 1. T ransient diplopia - H53.2 (Primary) 2 . T onsillith - J35.8 Plan: * Treatment: 2. T onsillith Notes: dr le's office would not see her so is going to see [facility] * Procedure Codes: * * Sign off status: Completed true * Provider: Marika Ferreira MD Date: 0 09/15/2024 Generated for Miguel courtney/Laura/Chloe on: 1 09:11 AM EDT History and Physical Notes * HPI (History of Present Illness) Category Sub-Category Detail Notes Category Not es Symptom(s) Telehealth Location of [facility] rendering services:: [address], [address] patient is a 69 yo female here for 4 week follow up visit of tyleron changes. saw her alternative doctor. he thought that it could be one of anything. didn't think it was covid or rsv. started about 8 days ago..getting better. the formula is helping with the cough. has not had any other recurrence of the vision. carotid ultrasound was normal. Location of patient:: at address listed in demographics for today's visit Patient identification confirmed using:: Name, Telehealth method:: Video co nference where patient is visible to the provider of care Consent:: Patient verbally c onsented to treatment, Patient verbally consented to billing insurance company, Patient informed of any privacy concerns related to method of visit Total time spend talking with patient (m inutes): 18 Examination Category Sub-Category Detail Notes Category Not es General Examination GENERAL APPEARANCE: alert, w ell hydrated, in no distress HEAD: normocephalic
--- OUTSIDE RECORDS SUMMARY | 2024-12-27 05:00 | XMS_ITS ---
Author Organization Kumar Ferreira MD Address [address] [place] [phone] Care Team Providers Care Jewelry Internship Name Role Phone Kumar Ferreira Primary Care Provider Allergies No Known Allergies REASON FOR VISIT 6 month Medications Medication SIG (Take, Route, Fr equency, Duration) Notes Start Date End Date Status Magnesium 300 MG 1 capsule with a lita l Orally Once a day Active Vitamin D 10 MCG/ML as directed Orally Active Estrace 0.1 MG/GM 1/2 inch Vaginal 3 w [employer] [place] [employer] [place] per month for 90 days 06/27/2024 Not-Taking Vital Signs Blood pressure systolic 154 mm Hg 12/28/19 25 Blood pressure diastolic 70 mm Hg 025 Height 62 in 12/27/2024 Weight 118 lbs 12/27/2024 BMI 21.58 kg/m2 12/27/2024 weight is down 7 pounds [facility] e 08-15-24 Encounters Encounter Location Date Provider Diagnosis Kumar Ferreira MD [address] [place] [phone] 12/27/2024 Kumar Ferreira Labile hypertension I10 and Vitamin D deficiency E55.9 Assessments Encounter Date Diagnosis (ICD Code) Assessment Notes Treatment Notes Treatment Clinical Notes Section Notes 12/27/2024 Labile hypertension (ICD-10 - I10) doing well. will observe 12/27/2024 Vitamin D deficiency (ICD-10 - E55.9) will continue current regiment Plan Of Treatment Medication Medication Name Sig Start Date Stop Date Notes Vitamin D 10 MCG/ML as directed Orally Treatment Notes Assessment Notes Labile hypertension doing well. will obs erve Vitamin D deficiency will continue curre nt regiment Next Appt Details Provider Name:Kumar Leblanc ier, 06/26/2025 07:45:00 AM, [address], [address], [place], [place], [phone], Provider Name:Kumar Leblanc ier, 07/03/2025 09:30:00 AM, [address], [address], [place], [place], [phone], Progress Notes * EDWARDOAmarilise EDOB:[birth year] (69 yo F)Acc No.[id number]:12/27/2024 Progress Notes Patient: Caroline STEWART Provider: Marika Ferreira MD :1955 A ge:69 Y S ex:Female Date:12/27/2024 Address:[address] [place] [address], [facility] Subjective: * Chief Complaints: * 6 month * HPI: S ymptom(s): patient is a 69 yo female here for 6 month follow up visit/ appetitie down. feelin a little depressed. had a tonsillith and it disappeared after having dental work. * ROS: G eneral/Constitutional: Denies C hills. D enies F atigue. D enies F ever. D enies H eadache. E NT: Denies S ore throat. R espiratory: Denies C ough. D enies S hortness of breath at rest. D enies S hortness of breath with exertion. G astrointestinal: Denies D iarrhea. D enies N ausea. * Medical History: * Surgical History: * Hospitalization/Major Diagno stic Procedure: * Medications: T akingMagnesium 300 MG Capsule 1 capsule with a meal Orally Once a day Vitamin D 10 MCG/ML Liquid as directed Orally Taking Magnesium 300 MG Capsule 1 capsule with a meal Orally Once a day Taking Vitamin D 10 MCG/ML Liquid as directed Orally Not-Taking/PRNEstrace 0.1 MG/GM Cream 1/2 inch Vaginal 3 week per month Not-Taking/PRN Estrace 0.1 MG/GM Cream 1/2 inch Vaginal 3 week per month DiscontinuedMilk Thistle 1000 MG Capsule as directed Orally once a day Medication List reviewed and reconciled with the patientDiscontinued Milk Thistle 1000 MG Capsule as directed Orally once a day Medication List reviewed and reconciled with the patient * Allergies: N .K.D.A.yes[Allergies Verified] Objective: * Vitals: H t: 62, Wt: 118, BMI:21.58, BP:154/70, Repeat BP:130/86, Wt-k.52. weight is down 7 pounds since 08-15-24. * Examination: G eneral Examination: GENERAL APPEARANCE: i n no acute distress. HEAD: n ormocephalic. SKIN: g ood turgor. HEART: r egular rate and rhythm. LUNGS: n o wheezes, rales, rhonchi, good air movement, clear to auscultation bilaterally. Assessment: * Assessment: 1. L abile hypertension - I10 (Primary) 2 . V itamin D deficiency - E55.9? Plan: * Treatment: 2. V itamin D deficiency Continue Vitamin D Liquid, 10 MCG/ML, as directed, Orally. Notes: will continue current regiment * Procedure Codes: * * Sign off status: Completed true * Provider: Marika Ferreira MD Date: 0 12/27/2024 Generated for Miguel courtney/Laura/Kenitting on: 1 09:11 AM EDT History and Physical Notes * HPI (History of Present Illness) Category Sub-Category Detail Notes Category Not es Symptom(s) patient is a 69 yo female here for 6 month follow up visit/ appetitie down. feelin a little depressed. had a tonsillith and it disappeared after having dental work. Examination Category Sub-Category Detail Notes Category Not es General Examination GENERAL APPEARANCE: in no acute di stress HEAD: normocephalic HEART: regular rate and rhy thm LUNGS: no wheezes, rales, r honchi, good air movement, clear to auscultation bilaterally SKIN: good turgor
--- NOTE | ~2025-05-17 | US_ITS ---
EXAMINATION: US THYROID CLINICAL INFORMATION: Goiter, nodules. Prior right lower pole thyroid biopsy 09/16/2022, benign result. COMPARISON: 05/03/2024, 06/11/2022. 09/16/2022 FNA. TECHNIQUE: Linear transducer grayscale and color Doppler examination with attention to the region of the thyroid. FINDINGS: SIZE: Measurements of the thyroid lobes and nodules are given in sagittal, anteroposterior and transverse dimensions respectively. Right Thyroid Lobe: 6.5 x 3.1 x 2.3 cm, volume 23.4 mL. Parenchyma: The gland echotexture is heterogeneous. Thyroid vascularity is increased. Left Thyroid Lobe: 5.1 x 2.0 x 1.6 cm, volume 8.9 mL. Parenchyma: The gland echotexture is mildly heterogeneous. Thyroid vascularity is increased. Isthmus: 0.7 cm in maximum AP dimension. Estimated total number of nodules greater than or equal to 1 cm: 1. Operations Advisor nodules are described as follows: 1. Location: Right mid to lower pole. Size: 3.3 x 2.7 x 2.0 cm, volume 9.0 mL. (Previous volume = 9.5 mL). Nodule characteristics: Composition: Solid (2). Echogenicity: Cannot be determined (1). Shape: Taller than wide (3). Margins: Smooth (0). Echogenic Foci: Punctate echogenic foci (3). ACR TI-RADS total points: 9 ACR TI-RADS category: 5 There are 4 additional thyroid nodules present, all less than 1 cm, spongiform, and all TR category 1. These are largely stable from the prior examination. None are suspicious. NODES: No lymphadenopathy is seen in the tissue surrounding the thyroid gland. US/US thyroid IMPRESSION: 1. There is a 3.3 cm TR category 5 nodule in the right mid to lower pole, stable from the prior examination. Previous biopsy was benign. Recommend Follow-up as per clinical judgment. 2. There are 4 additional TR category 1 spongiform nodules in the thyroid gland, none suspicious or enlarging. No follow-up on these recommended. 3. The intervening thyroid tissue is mildly heterogeneous and hypervascular, consistent with thyroiditis. ACR TI-RADS RECOMMENDATION REFERENCE: Ultrasound-guided fine-needle aspiration, followup ultrasound, no further follow up. * TR1 (0 point) and TR2 (2 points): No FNA or follow up. * TR3 (3 points): FNA if more than or equal to 2.5 cm in maximum dimension, followup ultrasound in 1, 3 and 5 years if 1.5 to 2.4 cm in maximum dimension. * TR4 (4-6 points): FNA if more than or equal to 1.5 cm in maximum dimension, followup ultrasound in 1, 2, 3 and 5 years if 1 to 1.4 cm in maximum dimension. * TR5 (more than or equal to 7 points): FNA if more than or equal to 1 cm in maximum dimension, followup ultrasound every year for 5 years if 0.5 to 0.9 cm in maximum dimension. * TR3, TR4 or TR5 nodules that are below the size threshold for followup receive no follow up. Electronically signed by: Jules Ellsworth MD 05/17/2025 12:19 PM EDT
--- OUTSIDE RECORDS SUMMARY | 2025-05-17 09:12 | XMS_ITS | Patient Health Record ---
Author Organization Kumar Ferreira MD Address [address] [place], [place] [address] Care Team Providers Care Media Sales Executive Name Role Phone Kumar Ferreira Primary Care Provider Allergies No Known Allergies Results Component Value Reference Range Notes Complete Blood Count Auto Di ff Reviewed date:06/20/2024 04:49:54 PM Interpretation: Performing Lab:[facility], [address] [place] [phone] Notes/Report: White Blood Count 6.5 4.8-10.8 X10*3/uL Red Blood Count 4.85 4.20-5.50 X10*6/uL Hemoglobin 14.9 12.0-16.0 g/dl Hematocrit 45.9 37.0-47.0 % Mean Corpuscular Volume 94.6 80.0-98.0 fL Mean Corpuscular Hemoglobin 30.7 27.0-33.0 pg Mean Corpuscular HGB Conc 32.5 31.0-35.0 g/dl Red Cell Distribution Width 12.1 11.0-16.0 % Platelet Count 244 160-400 X10*3/uL Mean Platelet Volume 9.9 9.4-12.3 fL Neutrophils Percent Auto 61.9 45-73 % Imm Gran Pct Auto 0.2 0.0-0.4 % Lymphocytes Percent Auto 26.5 20-40 % Monocytes Percent Auto 9.1 2-11 % Eosinophils Percent Auto 1.7 0-4 % Basophils Percent Auto 0.6 0-2 % NRBC Pct Auto 0.0 0.0-0.2 /100WBC Neutrophils Absolute Auto 4.0 2.0-8.3 x10*3/uL Imm Gran Abs Auto 0.01 0.00-0.03 X10*3/uL Lymphocytes Absolute Auto 1.7 1.2-4.9 X10*3/uL Monocytes Absolute Auto 0.6 0.1-1.2 X10*3/uL Eosinophils Absolute Auto 0.1 0.0-0.4 X10*3/uL Basophils Absolute Auto 0.0 0.0-0.2 X10*3/uL NRBC Abs Auto 0.000 0.0-0.012 X10*3/uL Comprehensive Kimball. Panel Fa st Reviewed date:06/20/2024 12:37:01 PM Interpretation: Performing Lab:[facility], [address] [place] [phone] Notes/Report: Sodium 144 135-145 mmol/L Potassium 3.6 3.3-5.1 mmol/L Chloride 110 96-108 mmol/L Carbon Dioxide 30 22-29 mmol/L Anion Gap 8 12-20 Blood Urea Nitrogen 17 9-16 mg/dL Creatinine 0.77 0.5-1.4 mg/dL Estimated Glomerular Filt Rate > 60 Chronic Kidney Disease: Estimated GFR < 60 mL/min/1.73m2 Severe Kidney Disease: Estimated GFR < 15 mL/min/1.73m2 Glucose Fasting 96 60-99 mg/dL Calcium 9.7 8.4-10.2 mg/dL Bilirubin Total 0.9 0.0-1.0 mg/dL Aspartate Amino Transferase 32 5-31 U/L Alanine Aminotransferase 23 0-31 U/L Total Protein 6.4 6.5-8.0 g/dL Albumin Level 3.9 3.5-5.0 g/dL Alkaline Phosphatase 96 39-117 U/L Lipid Panel Reviewed date:06/20/2024 12:31:30 PM Interpretation: Performing Lab:[facility], [address] [place] [phone] Notes/Report: Triglycerides 77 <150 mg/dL Desirable Triglyceride: less than 150 mg/dL Borderline High Triglyceride 150-199 mg/dL High Triglyceride: 200-499 mg/dL Very High Triglyceride: greater than or equal to 5OO mg/dL Cholesterol 186 <200 mg/dL Desirable Cholesterol: less than 200 mg/dL Borderline High Cholesterol: 200-239 mg/dL High Cholesterol: greater than 239 mg/dL LDL Cholesterol Calculated 109 <100 mg/dL Desirable LDL: less than 100 mg/dL Near Optimal/Above Optimal LDL: 110-129 mg/dL Borderline High LDL: 130-159 mg/dL High LDL: 160-189 mg/dL Very High LDL: greater than or equal to 190 mg/dL HDL Cholesterol 62 >40 mg/dL Desirable HDL: greater than 40 mg/dL Note: This HDL assay may give artificially low results in patients with liver disease. Vitamin D 25-OH Total Reviewed date:06/20/2024 12:38:57 PM Interpretation: Performing Lab:[facility], [address] [place] [phone] Notes/Report: Vitamin D 25-OH Total 57.1 >30 ng/mL Health Based Reference Values* < 20 ng/mL Deficient 20-30 ng/mL Insufficient > 30 ng/mL Sufficient *Sylvester GU. N Engl J Med. 2007;357:266-280 Care must be taken in interpreting Vitamin D results from different laboratories and methodologies. Published data demonstrated that results from patients undergoing hemodialysis may show a negative bias when tested with various automated 25-OH vitamin D assays when compared to LC-MS/MS. When testing samples from patients whose predominant form of Vitamin D is Vitamin D2, such as patients receiving Vitamin D2 supplementation, results that are subtherapeutic should be confirmed with another method such as LC-MS/MS. UA ClnCatch+Micro w/rflx Cul t Reviewed date:07/14/2024 08:01:28 AM Interpretation:see back 07-12-24 Performing Lab:[facility], [address] [place] [phone] Notes/Report: Urine, Clean Catch Color Urine Yellow Appearance Urine Turbid PH 6.5 5.0-9.0 Glucose Urine UA Negative Negative mg/dL Urine Blood Small (1+) Negative Specific Tolar - Urine 1.015 1.005-1.025 Urine Protein 30 (1+) Neg-Trace mg/dL Urine Ketones Negative Negative mg/dL Nitrite Urine Negative Negative Leukocyte Esterase Urine Large (3+) Negative RBC Urine 0-2 0-2 /HPF WBC Urine >50 0-5 /HPF Squamous Epithelial Cell Urine 6-10 0-2 /HPF Bacteria Urine 3+ None Seen Hyaline Casts Urine 11-20 0-2 /LPF Granular Casts Urine Present UA ClnCatch+Micro w/rflx Cul t Reviewed date:08/16/2024 08:15:11 AM Interpretation:repeat u/s 08-15-24 Performing Lab:[facility], [address] [place] [phone] Notes/Report: Urine, Clean Catch Color Urine Yellow Appearance Urine Cloudy PH 6.0 5.0-9.0 Glucose Urine UA Negative Negative mg/dL Urine Blood Trace Negative Specific Tolar - Urine 1.015 1.005-1.025 Urine Protein Negative Neg-Trace mg/dL Urine Ketones Negative Negative mg/dL Nitrite Urine Negative Negative Leukocyte Esterase Urine Large (3+) Negative RBC Urine 0-2 0-2 /HPF WBC Urine >50 0-5 /HPF Squamous Epithelial Cell Urine 11-20 0-2 /HPF Bacteria Urine 3+ None Seen Hyaline Casts Urine 3-5 0-2 /LPF Occult Blood, Stool, Guaiac Reviewed date:06/27/2024 09:30:01 AM Interpretation:Negative Performing Lab: Notes/Report: Negative Occult Blood, Stool, Guaiac Neg UA ClnCatch+Micro w/rflx Cul t Reviewed date:08/15/2024 02:16:44 PM Interpretation: Performing Lab:[facility], [address] [place] [phone] Notes/Report: Urine, Clean Catch Color Urine Yellow Appearance Urine Clear PH 5.0 5.0-9.0 Glucose Urine UA Negative Negative mg/dL Urine Blood Negative Negative Specific Tolar - Urine 1.020 1.005-1.025 Urine Protein Negative Neg-Trace mg/dL Urine Ketones Negative Negative mg/dL Nitrite Urine Negative Negative Leukocyte Esterase Urine Moderate (2+) Negative RBC Urine 0-2 0-2 /HPF WBC Urine 11-20 0-5 /HPF Squamous Epithelial Cell Urine 0-2 0-2 /HPF Bacteria Urine None Seen None Seen Hyaline Casts Urine 0-2 0-2 /LPF Urine Culture Reviewed date:06/21/2024 08:14:03 PM Interpretation: Performing Lab:[facility], [address] [place] [phone] Notes/Report: O:STRAGA Strep agalactiae (Gr p B) Urine Culture Quant Urine Culture > 100,000 cfu/mL Urine Culture Susc N/A Urine Culture Susceptibility not routinely performed on this isolate. Urine Culture Reviewed date:07/16/2024 02:40:47 PM Interpretation: Performing Lab:[facility], [address] [place] [phone] Notes/Report: O:STRAGA Strep agalactiae (Gr p B) Urine Culture Quant Urine Culture 50,000 to 100,000 cfu/mL Urine Culture Susc N/A Urine Culture Susceptibility not routinely performed on this isolate. Urine Culture Reviewed date:08/16/2024 05:14:17 PM Interpretation: Performing Lab:[facility], [address] [place] [phone] Notes/Report: O:STRAGA Strep agalactiae (Gr p B) Urine Culture Quant Urine Culture 10,000 to 50,000 cfu/mL Urine Culture Susc N/A Urine Culture Susceptibility not routinely performed on this isolate. US carotid duplex BI Reviewed date:08/29/2024 05:14:58 PM Interpretation: Performing Lab: Notes/Report: [facility] [place] [address] Ultrasound Report Signed Patient: Caroline Fan MR#: [id number] 206 : 1955 Acct:[id number] Age/Sex: 69 / F ADM Date: 08/24/24 [facility] Attending Dr: Kumar Ferreira MD Ordering Physician: Kumar Ferreira MD Date of Service: 08/24/24 Procedure(s): US carotid duplex BI Accession Number(s): [id number] cc: Kumar Ferreira MD EXAMINATION: US EXTRACRANIAL CAROTID DUPLEX, BILATERAL CLINICAL INFORMATION: Vision changes COMPARISON: Ultrasound carotid Doppler 06/09 2006. TECHNIQUE: Real-time ultrasound and Doppler techniques (integrating B-mode 2-D vascular images, Doppler spectral analysis and color-flow Doppler imaging) were utilized to interrogate the extracranial carotid arteries, the vertebral arteries and proximal subclavian arteries bilaterally. The degree of stenosis is determined by criteria similar to NASCET. FINDINGS: Right Side: 1. There is no atherosclerotic plaque seen in the bifurcation/proximal ICA region. 2. The common carotid artery PSV proximally is 140 cm/s and distally 69.2 cm/s. 3. The proximal internal carotid artery velocities are 58.6 cm/s systolic and 14.1 cm/s diastolic. 4. The proximal external carotid artery PSV is 108 cm/s. 5. The vertebral artery shows antegrade flow. 6. The subclavian artery waveforms are normal. Left Side: 1. There is none atherosclerotic plaque seen in the bifurcation/proximal ICA region. 2. The common carotid artery PSV proximally is 99.8 cm/s and distally 72.1 cm/s. 3. The proximal internal carotid artery velocities are 50.7 cm/s systolic and 14.1 cm/s diastolic. 4. The proximal external carotid artery PSV is 112 cm/s. 5. The vertebral artery shows antegrade flow. 6. The subclavian artery waveforms are normal. US/US carotid duplex BI IMPRESSION: 1. RIGHT: No hemodynamically significant stenosis. In 2005 patient had 50-60% stenosis. ? Did patient have carotid surgery during the interval. 2. LEFT: No hemodynamically significant stenosis 3. There is no change in the category severity of disease when compared to the previous study dated none. Electronically signed by: Dheeraj Ro MD 08/24/2024 11:23 AM [facility] Dictated By: Dheeraj Ro MD Signed By: <Electronically signed by Dheeraj Ro MD in OV> 08/24/24 1123 DD/ 1030 TD/TT: 08/24/24 1055 Rn Ed: [facility] [place] [address] Ultrasound Report Signed Patient: Yas Fan MR#: [id number] : 1955 Acct:[id number] Age/Sex: 69 / F ADM Date: 08/24/24 Loc: [facility] Attending Dr: Kumar Ferreira MD Ordering Physician: Kumar Ferreira MD Date of Service: 08/24/24 Procedure(s): US carotid duplex BI Accession Number(s): [id number] cc: Kumar Ferreira MD EXAMINATION: US EXTRACRANIAL HERNANDEZ TID DUPLEX, BILATERAL CLINICAL INFORMATION: Vision changes COMPARISON: Ultrasound carotid Doppler 06/09 2006. TECHNIQUE: Real-time ultrasound and Doppler techniques (integrating B-mode 2-D vascular images, Doppler spectral analysis and color-flow Doppler imaging) were utilized to interrog ate the extracranial carotid arteries, the vertebral arteries a nd proximal subclavian arteries bilaterally. The degree of stenosis i s determined by criteria similar to NASCET. FINDINGS: Right Side: 1. There is no atherosclerotic plaque seen in the bifurcation/proximal ICA region. 2. The common caroti d artery PSV proximally is 140 cm/s and distally 69.2 cm/s. 3. The proximal internal carotid artery velocities are 58.6 cm/s systolic and 14.1 cm /s diastolic. 4. The proximal external carotid artery PSV is 108 cm/s. 5. The vertebral art janina shows antegrade flow. 6. The subclavian artery waveforms are normal. Left Side: 1. There is none atherosclerotic plaque seen in the bifurcation/proximal ICA region. 2. The common caroti d artery PSV proximally is 99.8 cm/s and distally 72.1 cm/s. 3. The proximal internal carotid artery velocities are 50.7 cm/s systolic and 14.1 cm /s diastolic. 4. The proximal external carotid artery PSV is 112 cm/s. 5. The vertebral art janina shows antegrade flow. 6. The subclavian artery waveforms are normal. US/US carotid duplex BI IMPRESSION: 1. RIGHT: No hemodynamically significant stenosis. In 2005 patient had 50-60% stenosis. ? D id patient have carotid surgery during the interval. 2. LEFT: No hemodynamically significant stenosis 3. There is no guerra e in the category severity of disease when compared to the previous stud y dated none. Electronically michelle d by: Dheeraj Ro MD 08/24/2024 11:23 AM EST Dictated By: Dheeraj Ro MD Signed By: <Electronically signed by Dheeraj Ro MD in OV> 08/24/24 1123 DD/ 1030 TD/TT: 08/24/24 1055 Rn Ed: [facility] Reason For Referral Reason thyroid nodule Diagnosis 1 Thyroid nodule (E04. 1) Referral Organization Kumar Ferreira MD Referring Provider First Name Kumar Referring Provider Last Name Hanna Referring Provider Speciality Internal M edicine Referred Provider Bob Pond Referred Provider Specialty Endocrinolog y General Notes Isis Sarmiento 02:31:20 PM EST > info faxed Isis Sarmiento 07/14/2024 07:55:28 AM EST > patient is aware of appt Referral Priority Routine Referral Appointment Date 07/22/2024 Medications Medication SIG (Take, Route, Fr equency, Duration) Notes Start Date End Date Status Magnesium 300 MG 1 capsule with a lita l Orally Once a day Active Vitamin D 10 MCG/ML as directed Orally Active Estrace 0.1 MG/GM 1/2 inch Vaginal 3 w angoon per month for 90 days 06/27/2024 Not-Taking Immunizations Vaccine Route Administration Date Status Comme nts Flu Vaccine Unknown 10/02/2015 Refused PPSV23 (Pnemovax) Unknown 01/11/2018 Refused TDaP Unknown 01/18/2018 Refused Shingrix Unknown 01/18/2018 Refused Prevnar 13 Unknown 01/17/2019 Refused Fluarix Quadrivalent Unknown 05/28/2020 Refused PPSV23 (Pnemovax) Unknown 05/28/2020 Refused Prevnar 13 Unknown 05/28/2020 Refused Fluarix Quadrivalent Unknown 06/01/2020 Refused Covid Vaccine Unknown 02/15/2021 Refused Influenza High Dose Unknown 06/19/2023 Refused Social History Tobacco Use: Social History Observation Description Date Details (start date - stop date) Never Smoker NA - NA Tobacco Use/Smoking Question Answer Notes Patient is a nonsmoker Additional Findings: Tobacco Non-User Cu rrent non-smoker, currently using no form of tobacco Alcohol Screen Question Answer Notes Did you have a drink containing alcohol in the p ast year? No Points 0 Interpretation Negative Problems Problem Type SNOMED Code ICD Code Onset Dates Problem Status W/U Status Risk Notes Problem 075763156 Thyroid nodule (E04.1) Active confirmed Problem 09159794 Vitamin D defici ency (E55.9) Active confirmed Problem 86292501 Other osteoporos is without current pathological fracture (M81.8) Active confirmed Problem 42096193 Kidney stone (N20.0) Active confirmed Problem 228103645 Gastroesophageal reflux disease without esophagitis (K21.9) Active confirmed Problem 18230202 Labile hypertens ion (I10) Active confirmed Problem 798067001 History of hemat uria (Z87.448) Active confirmed Problem 4629622 Goiter, unspecif ied (E04.9) Active confirmed Problem 83917516 Glucosuria (R81) Active confirmed Problem 7296639 Tonsillith (J35.8) Active confirmed Problem 639887350 Vaginal atrophy (N95.2) Active confirmed Problem 185086540 Asymptomatic gallstones (K80.20) Active confirmed Vital Signs Blood pressure diastolic 70 mm Hg 12/27/2024 eliezer ght is down 7 pounds since 08-15-24 Height 62 in 12/27/2024 weight is down 7 pounds since 08-15-24 Blood pressure systolic 154 mm Hg 12/27/2024 weig ht is down 7 pounds since 08-15-24 Weight 118 lbs 12/27/2024 weight is down 7 pounds since 08-15-24 BMI 21.58 kg/m2 12/27/2024 weight is down 7 pounds since 08-15-24 Encounters Encounter Location Date Provider Diagnosis Kumar Ferreira MD [address] [place] [id number] 06/20/2024 Kumar Ferreira Blood tests for routine general physical examination Z00.00 ; Vitamin D deficiency E55.9 and Labile hypertension I10 Kumar Ferreira MD [address] [place] [address] [id number] 07/14/2024 Kumar Ferreira Urinary tract infection, site not specified N39.0 and Hematuria, unspecified R31.9 Kumar Ferreira MD [address] [place] [id number] 06/27/2024 Kumar Ferreira Thyroid nodule E04.1 ; Annual physical exam Z00.00 ; Acute UTI N39.0 ; Skin rash R21 ; Vaginal atrophy N95.2 ; Vitamin D deficiency E55.9 ; Colon cancer screening Z12.11 and Depression screening Z13.31 Kumar Ferreira MD [address] [id number] 08/15/2024 Kumar Ferreira Hematuria R31.9 ; Vision changes H53.9 and Tonsillith J35.8 Kumar Ferreira MD [address] [place] [id number] 09/15/2024 Kumar Ferreira Transient diplopia H53.2 and Tonsillith J35.8 Kumar Ferreira MD [address] [place] [id number] 12/27/2024 Kumar Ferreira Labile hypertension I10 and Vitamin D deficiency E55.9 Kumar Ferreira MD [address] [place] [id number] 06/27/2024 Kumar Ferreira MD [address] [place] [id number] 07/14/2024 Kumar Ferreira Assessments Encounter Date Diagnosis (ICD Code) Assessment Notes Treatment Notes Treatment Clinical Notes Section Notes 06/20/2024 Blood tests for routine general physical examination (ICD-10 - Z00.00) 06/20/2024 Vitamin D deficiency (ICD-10 - E55.9) 07/14/2024 Urinary tract infection, site not specified (ICD-10 - N39.0) 07/14/2024 Hematuria, unspecified (ICD-10 - R31.9) 06/27/2024 Thyroid nodule (ICD-10 - E04.1) referral to endocrine dr pond 06/27/2024 Annual physical exam (ICD-10 - Z00.00) labs reviewed and discussed with patient 08/15/2024 Hematuria (ICD-10 - R31.9) 08/15/2024 Vision changes (ICD-10 - H53.9) will have her take baby asa daily in case it is embolic and will get repeat us/ order faxed to [facility] dept 09/15/2024 Transient diplopia (ICD-10 - H53.2) has not had any further problems. if it recurs will get mri 12/27/2024 Labile hypertension (ICD-10 - I10) doing well. will observe 06/20/2024 Labile hypertension (ICD-10 - I10) 06/27/2024 Acute UTI (ICD-10 - N39.0) treated by holistic doctor 08/15/2024 Tonsillith (ICD-10 - J35.8) referral to dr le/ info given to patient she will call to set up her own appt 09/15/2024 Tonsillith (ICD-10 - J35.8) dr le's office would not see her so is going to see [facility] 12/27/2024 Vitamin D deficiency (ICD-10 - E55.9) will continue current regiment 06/27/2024 Skin rash (ICD-10 - R21) has seen adventure education teacher in november/ should go back to adventure education teacher as it appears to be scabies/ patient will be calling to make her own appt 06/27/2024 Vaginal atrophy (ICD-10 - N95.2) 06/27/2024 Vitamin D deficiency (ICD-10 - E55.9) stable, will continue current regiment 06/27/2024 Colon cancer screening (ICD-10 - Z12.11) guaiac negative 06/27/2024 Depression screening (ICD-10 - Z13.31) negative screen Plan Of Treatment Pending Test Test Name Order Date Electrocardiogram (EKG) 12/24/2015 Electrocardiogram (EKG) 01/06/2017 US CAROTID BILATERAL DOPPLER 08/15/2024 US URINARY BLADDER 05/04/2012 US thyroid 02/15/2021 Future Test Test Name Order Date BONE DENSITY DEXA 07/18/2020 US THYROID 06/22/2021 US thyroid 09/23/2023 US thyroid 10/18/2023 Next Appt Details Provider Name:Kumar Leblanc ier, 06/26/2025 07:45:00 AM, [address] [place] [address], [address], [phone], Provider Name:Kumar Leblanc ier, 07/03/2025 09:30:00 AM, [address] [place] [address], Suite [facility], [place], [place], [id number], Insurance Providers Payer Name Payer Address Payer Phone Subscriber Number Group Number Insured Name Patient Relationship to Insured Coverage Start Date Coverage End Date [facility] [address] [place] [id number] Caroline Fan Self - patient is the insured Medical (General) History Medical History History ICD Code Hematuria - Work-up Negative 05/23/2013 - colonoscopy neg due in 10 y ears waiting 2023 UTILITY MANAGER exam,10/14 Dr. Farfan, [facility] would not take any of the nc ds for osteoporosis so no reason to do bone density Had Bone Density 06/22/18 Osteoporosis, should repeat in Jun 2020. Surgical History Surgery Date(Month/Year) appendectomy
--- OUTSIDE RECORDS SUMMARY | 2025-05-17 09:12 | XMS_ITS | Patient Health Record ---
Author Organization [facility] Address [address] [place] [address] Care Team Providers Care Public Health Program Manager Name Role Phone Kumar Ferreira MD Primary Care Provider Bob Morrow Unavailable [phone] Reason For Referral No Information Medications Medication SIG (Take, Route, Fr equency, Duration) Notes Start Date End Date Status MoviPrep 100 GM as directed Orally a s directed; Duration: 1 dose 01/11/2013 Active Problems Problem Type SNOMED Code ICD Code Onset Dates Problem Status W/U Status Risk Notes Problem Colon cancer screening (640165749) Colon cancer screening (V76.51) Active confirmed Plan Of Treatment Future Test Test Name Order Date COLONOSCOPY 01/11/2013 Insurance Providers Payer Name Payer Address Payer Phone Subscriber Number Group Number Insured Name Patient Relationship to Insured Coverage Start Date Coverage End Date [facility] ([employer]) [address] [place] [address] [id number] PAUL BROOKE Self - patient is the insured Medical (General) History Medical History History ICD Code colonoscopy 05-22-2003--internal hemorrh oids- no polyps Kidney stone-04/2012 Denies DE,DM,CVA,Lung disease,renal dise ase Surgical History Surgery Date(Month/Year) appendectomy myomectomy for fibroids elbow surgery
--- OUTSIDE RECORDS SUMMARY | 2025-05-17 09:12 | XMS_ITS | Patient Health Record ---
Author Organization [facility] Address [address] [place] [address] Care Team Providers Care Pediatric Social Worker Name Role Phone Kumar Ferreira MD Primary Care Provider Jane Hidalgo [phone] Allergies No Known Allergies Reason For Referral No Information Medications Medication SIG (Take, Route, Frequency, Duration) Notes Start Date End Date Status Ciclopirox Olamine 0.77 % 1 application Externally Twice a day to skin of feet including between the toes; Duration: 30 days Active Walking Boot/Pneumatic As directed Wear Daily; Duration: Until further notice 01/11/2024 Active Lazerformalyde 10 [...] Problem Acquired hammer toe of right foot (8160176295096 105) Other hammer toe(s) (acquired), right foot (M20.41) Active confirmed Problem Acquired hammer toe of left foot (9400066404346 103) Other hammer toe(s) (acquired), left foot (M20.42) Active confirmed Encounters Encounter Location Date Provider Diagnosis [facility] [address] [place] [address] 08/10/2024 Jane Wei Plan Of Treatment Pending Test Test Name Order Date X ray : Foot, right 3V 02/01/2024 [id number] NAIL, -07/21/2011 80718-[id number] NAIL, -01/23/2012 63157-[id number] NAIL, -03/29/2012 [id number] NAIL, -05/17/2012 [id number] NAIL, -02/27/2022 [id number] NAIL, -05/08/2022 [id number] NAIL, -09/18/2022 [id number] NAIL, -12/11/2022 [id number] NAIL, 08-0703/12/2023 64093-RMDUSDI NAIL, 08-0702/01/2024 43002-Oqwd Destruction, 08-1612/11/2022 02958-Sdgu Destruction, 08-1609/18/2022 73073-Mlxe Destruction, 08-1605/08/2022 92030-Nqcf Destruction, 08-1602/27/2022 44233-Dpqo Destruction, 08-1609/26/2015 43589-Xhsu Destruction, -03/29/2012 73697-Jrbc Destruction, 08-1601/23/2012 35469-Pphb Destruction, 08-1607/21/2011 Insurance Providers Payer Name Payer Address Payer Phone Subscriber Number Group Number Insured Name Patient Relationship to Insured Coverage Start Date Coverage End Date [facility] [address] [place] [phone] [id number] Caroline Fan Self - patient is the insured Medical (General) History Medical History History ICD Code transfusions mumps measles chicken pox Broken Bones Warts Cataracts Kidney stones Surgical History Surgery Date(Month/Year) appendectomy 1996 elbow sx 1970 dental implant 2011 Radical Neck 1970 laser therapy 06/2014 fibroids myomectomy 1996 cataract surgery 03/20/2020, 04/2020 throid BX 09/2022 Eye Surgery- Laser 11/2022
== END 2025-05-17 08:42 | disposition home or self-care (01) ==
LOC: HO.HMGCX 08:41
PROVIDERS: PCP Internal Medicine; Visit Provider Student in an Organized Health Care Education/Training Program
DX: E04.2 Nontoxic multinodular goiter (principal)
CPT/HCPCS: 76536

== ENCOUNTER → 2025-05-17 08:48 | Outpatient (BNV) | payer OTHER, SELFPAY | PROVIDERS: PCP Internal Medicine; Visit Provider Radiology Diagnostic Radiology | DX: E04.2 Nontoxic multinodular goiter (principal) | CPT/HCPCS: 76536 ==

== ENCOUNTER 2025-06-26 11:22 | Outpatient (REF) | payer OTHER, SELFPAY ==
[2025-06-26 11:24] LABS: MANUAL DIFF FLAG NO
[2025-06-26 11:37] LABS: Appearance Urine Clear; Glucose Urine UA Negative (Negative); PH 5.0 (5.0-9.0); Specific Gravity - Urine 1.020 (1.005-1.025)
[2025-06-26 11:42] LABS: Hematocrit 45.3 % (37.0-47.0); Hemoglobin 14.1 g/dl (12.0-16.0); Imm Gran Abs Auto 0.01 X10*3/uL (0.00-0.03); Imm Gran Pct Auto 0.2 % (0.0-0.4); Lymphocytes Absolute Auto 1.9 X10*3/uL (1.2-4.9); Mean Corpuscular HGB Conc 31.1 g/dl (31.0-35.0); Mean Corpuscular Hemoglobin 29.5 pg (27.0-33.0); Mean Corpuscular Volume 94.8 fL (80.0-98.0); NRBC Abs Auto 0.000 X10*3/uL (0.0-0.012); NRBC Pct Auto 0.0 /100WBC (0.0-0.2); Platelet Count 244 X10*3/uL (160-400); Red Blood Count 4.78 X10*6/uL (4.20-5.50); White Blood Count 5.9 X10*3/uL (4.8-10.8)
[2025-06-26 14:56] LABS: Alanine Aminotransferase 27 U/L (0-31); Albumin Level 4.3 g/dL (3.5-5.0); Alkaline Phosphatase 101 U/L (39-117); Anion Gap 11 (12-20); Aspartate Amino Transferase 31 U/L (5-31); Blood Urea Nitrogen 26 mg/dL (9-16); Calcium 9.8 mg/dL (8.4-10.2); Carbon Dioxide 28 mmol/L (22-29); Chloride 111 mmol/L (96-108); Cholesterol 209 mg/dL (<200); Estimated Glomerular Filt Rate > 60; HDL Cholesterol 70 mg/dL (>40); Potassium 4.2 mmol/L (3.3-5.1); Sodium 146 mmol/L (135-145); Total Protein 6.5 g/dL (6.5-8.0); Triglycerides 60 mg/dL (<150)
--- OUTSIDE RECORDS SUMMARY | 2025-06-26 14:57 | XMS_ITS | Data Portability ---
Author Organization [place] - [facility], Allergy Address [address] [place] [id number] Care Team Providers Care Tobacco Cloth Reclaimer Name Role Phone OSBALDO CARROLL Primary Care Provider [phone] Assessment Encounter Date Assessment Date Assessment LastModified by Organization Details LastModified Time 12/15/2024 12/15/2024 Patient has history and examination consistent with cryptic tonsils. Recommend symptomatic management. Consideration of topical rinses (with a recipe of 1 cup warm water, 1 tsp kosher/sea salt, 1/2 tsp baking soda) as well as trial of a WaterPik may be helpful to remove debris. Please avoid rigid instruments to dig into the tonsil surface as that may result in bleeding or scarring. Avoidance of alcohol based mouthwashes is encouraged. Recommended probiotics. Follow up for new or worsening symptoms. [email or web address] Not available 12/17/2024 15:33:30 Plan of Treatment Reminders Order Date Submit Date Provider Last Modified By Organization Details Last Modified Time Details Appointments None record ed. Lab None record ed. Referral None record ed. Procedures None record ed. Surgeries None record ed. Imaging None record ed. Medication Orders None record ed. Patient TargetsNo targets recorded. Patient InstructionsNo instructions recorded. Reason for Referral None Reported. Problems Name Problem SNOMED Code Status Onset Date Resolution Date Notes Provider Name and Address Organization Details Recorded Time Amygdalolith 8824807 Active 025 NAVI SMITH MD [address], [phone] [place] - [facility] 15:31:09 Problem Notes None recorded. Procedures Surgical History Date Name Laterality Status Provider Name and Address Organization Details Recorded Time appendectomy completed Nelly Potvin [place] - [facility] 12/15/2024 10:18:22 extraction of cataract completed Nelly Snow [place] [facility] 12/15/2024 10:18:36 Imaging Results None recorded. Procedure Notes None recorded. Medical Equipment None Reported. Allergies No known drug allergies Medications Not known to be on any medication Vitals Date Recorded Body height Body mass index (BMI) Body weight Provider Name and Address Organization Details Last Updated DateTime 12/15/2024 157.48 cm 21.5 kg/m2 34036.1 g Nelly Snow [place] [facility] 12/15/2024 10:20:41 Social History None recorded. Functional Status None recorded. Mental Status None recorded. Family History Nothing Reported. Medical History No medical history recorded. Gynecological HistoryNo gynecological history recorded. Obstetrics History GPAL:G 0 P 0 0 0 0 Past Encounters Encounter ID Performer Location Encounter Start Date Encounter Closed Date Diagnosis/Indication Diagnosis SNOMED-CT Code Diagnosis ICD10 Code Diagnosis IMO Codes Diagnosis Note [id number] NAVI SMITH MD [facility] [address] [place] [address] 12/15/2024 09:50:41 12/15/2024 10:41:52 Amygdalolith 9015678 J35.8 903381 Health Concerns Section Related Observation LastModified by Organization Detai ls LastModified Time None Recorded Concern Status LastModified by Organization Details LastModified Time None Recorded Advance Directives Directive None Recorded Payers Insurance Date Sequence Insurance Name Policy Number Policy Duran Covered Member ID Duran Member ID Guarantor Name 12/15/2024 1 [facility] [facility] Caroline Fan [id number] Caroline Fan 12/15/2024 2 [place] [email or web address] Caroline Fan [id number] Caroline Fan Notes Date Note Type Note Provider Name and Address Organization Details Recorded Time 12/15/2024 text/html 69 yo F for tonsil stonestonsils stones for yearsdental work in October day after dental work, stone was gone from the left sidealso another spot which is softer and will change in size no known allergiesno known heartburnnot much dairy uses Neemtongue scraperusually uses the Qtip, will get yellow matter no sore throatno dysphagiano otalgia NAVI SMITH MD [address] [place] [address], [place], [phone], [place] - [facility] 12/17/2024 15:33:50 OBGyn Episode No OBEpisode recorded.
== END 2025-06-26 11:23 | disposition home or self-care (01) ==
LOC: HO.LNP 11:22
PROVIDERS: Visit Provider Internal Medicine
DX: Z00.00 Encounter for general adult medical examination without abnormal findings (principal); I10 Essential (primary) hypertension; E55.9 Vitamin D deficiency, unspecified
CPT/HCPCS: 80053; 80061; 81001; 82306; 85025